=== PATIENT | female | born 1945 | race Caucasian/White ===

== ENCOUNTER 2017-06-20 15:53 | Emergency (ER) | payer MEDICARE ==
[2017-06-20] MEDS ORDERED: Adacel Vial IM ONE (16:23)
--- NOTE | 2017-06-20 16:35 | ERPHSYRPT ---
- History of Present Illness Time Seen by Provider: 06/20/17 16:15 Source: patient, family (daughter) Patient Subjective Stated Complaint: pt here for a fall today, pt tripped and fell going to dinning room for lunch today,pt co hurting all over, but worse to righ hip Triage Nursing Assessment: pt able to amulbate to bed from wc, resp easy, skin w /d pink, no brusiing to hip, has abrasion to upper lip, family unsure if front tooth is chipped from this fall Physician History: CC: fall Hx: 72 y/o patient of Dr Jg Patterson lives at [facility]. She was walking to the dining iqbal and fell. She is unsure of the events and has some hx of aphasia. She bumped her right supraorbital brow, her upper lip and possibly has a cracked left upper incisor, right hip and knee pain. No LOC. 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 No chest pain or shortness of breath. Unsure last tetanus vaccine. Occurred: just prior to arrival Reason for Fall: fell from standing pos Loss of Consciousness: no loss of consciousness Allergies/Adverse Reactions: Sulfa (Sulfonamide Antibiotics) Allergy (Verified 06/20/17 16:11) hydrochlorothiazide Adverse Reaction (Verified 06/20/17 16:11) Hx Tetanus, Diphtheria Vaccination/Date Given: No Hx Influenza Vaccination/Date Given: No Hx Pneumococcal Vaccination/Date Given: Yes Immunizations Up to Date: Yes - Review of Systems Constitutional: No Symptoms Eyes: No Vision Changes Respiratory: No Cough, No Dyspnea Cardiac: No Chest Pain Abdominal/Gastrointestinal: No Abdominal Pain, No Nausea, No Vomiting Musculoskeletal: Fall, No Back Pain, No Neck Pain Neurological: No Focal Weakness, No Headache All Other Systems: Reviewed and Negative - Past Medical History Neurological History: Stroke Musculoskeletal History: Fibromyalgia Other Medical History: restless leg - Past Surgical History Past Surgical History: Yes Gastrointestinal: Colon Resection Musculoskeletal: Orthopedic Surgery Female Surgical History: Hysterectomy Other Surgical History: knee replacements - Social History Smoking Status: Never smoker Exposure to second hand smoke: Yes Drug Use: none Patient Lives Alone: No ([facility]) - Female History Hx Last Menstrual Period: post - Nursing Vital Signs Nursing Vital Signs: Initial Vital Signs Temperature 97.2 F 06/20/17 16:05 Pulse Rate 83 10/12/17 16:05 Respiratory Rate 14 06/20/17 16:05 Blood Pressure 142/61 06/20/17 16:05 O2 Sat by Pulse Oximetry 96 06/20/17 16:05 Pain Scale Pain Intensity 4 - Annette Coma Score Best Eye Response ([place]): (4) open spontaneously Best Verbal Response (Annette): (4) confused conversation Best Motor Response (Annette): (6) obeys commands Annette Total: 14 - Physical Exam General Appearance: alert Head Injury: swelling (right supraorbital) Eye Exam: PERRL/EOMI ENT Exam: other (teeth occlude normally, lfet upper incisor has possible crack, upper lip has hole in dov surface) Neck Exam: No mid-line tenderness Respiratory/Chest Exam: normal breath sounds, No chest tenderness Cardiovascular Exam: regular rate/rhythm Gastrointestinal Exam: soft, No tenderness, No distention Extremity Exam: tenderness (right hip. right knee. Bruising and some swelling right knee.) Neurologic Exam: alert, cooperative, No motor deficits Skin Exam: warm, dry SpO2 Interpretation: normal SpO2: 96 Oxygen Delivery: Room Air Procedures - Laceration/Wound Repair upper lip Wound Length (cm): 0.75 Wound Explored: no foreign body noted Irrigated: Yes Hibiclens Prep: Yes Anesthesia: local, 2% Lidocaine (with epi) Volume Anesthetic (ccs): 1 Wound Repaired With: sutures Suture Size/Type: 5-0, chromic gut Number of Sutures: 2 Layer Closure?: No - Course Nursing assessment & vital signs reviewed: Yes - Radiology Exams right humerus, femur, knee, pelvis, cxr X-ray Interpretation: Reviewed by me, Negative - CT Exams brasin, cervical CT Interpretation: Negative, Tele-radiologist Report, No Fracture, No/ Intracranial Hemorrhag Ordered Tests: Active Orders 24 hr Category Date Time Status Catheter-[place] Rogel STAT Care 06/20/17 16:23 Active Cold Application STAT Care 06/20/17 16:26 Active IV Insertion STAT Care 06/20/17 16:23 Active NPO (ED) STAT Care 06/20/17 16:23 Active Prepare for Sutures STAT Care 06/20/17 17:45 Active Sutures STAT Care 06/20/17 17:45 Active Wound Care STAT Care 06/20/17 16:23 Active CERVICAL SPINE WO CONTRAST [CT] Stat Exams 06/20/17 16:24 Taken CHEST 1 VIEW (PORTABLE) Stat Exams 06/20/17 16:24 Taken FEMUR Stat Exams 06/20/17 16:28 Taken HEAD WITHOUT CONTRAST [CT] Stat Exams 06/20/17 16:24 Taken HUMERUS Stat Exams 06/20/17 16:38 Taken KNEE (1 OR 2 VIEW) Stat Exams 06/20/17 16:26 Taken PELVIS (1 OR 2 VIEWS) Stat Exams 06/20/17 17:24 Taken CBC W DIFF Stat Lab 06/20/17 16:45 Completed CMP Stat Lab 06/20/17 16:45 Completed PROTIME WITH INR Stat Lab 06/20/17 16:45 Completed PTT Stat Lab 06/20/17 16:45 Completed UA W/RFX UR CULTURE Stat Lab 06/20/17 16:24 Stop Req Medication Summary Discontinued Medications Generic Name Dose Route Start Last Admin Trade Name Freq PRN Reason Stop Dose Admin Diphtheria/Tetanus/Acell Pertussis 0.5 ml 06/20/17 16:23 06/20/17 16:36 Adacel Vial IM 06/20/17 16:24 0.5 ml .ONCE ONE Administration Lidocaine/Epinephrine 5 ml 06/20/17 17:45 Xylocaine 2%-Epi 1:100,000 Mdv IJ 06/20/17 17:46 STAT ONE Lidocaine/Epinephrine Confirm 06/20/17 17:43 Xylocaine 2%-Epi 1:100,000 Mdv Administered 06/20/17 17:44 Dose 1 ml IJ .STK-MED ONE Lab/Rad Data: Laboratory Result Diagrams 06/20/17 16:45 06/20/17 16:45 Laboratory Results 06/20/17 06/20/17 06/20/17 Range/Units 16:45 16:45 16:45 WBC 7.1 (4.0-10.5) K/mm3 RBC 4.93 (4.1-5.4) M/mm3 Hgb 14.5 (12.0-16.0) gm/dl Hct 44.1 (35-47) % MCV 89.5 (78-100) fl MCH 29.4 (26-32) pg MCHC 32.9 (32-36) g/dl RDW 13.7 (11.5-14.0) % Plt Count 191 (150-450) K/mm3 MPV 10.9 H (6-9.5) fl Gran % 63.8 (36.0-66.0) % Lymphocytes % 21.2 L (24.0-44.0) % Monocytes % 12.0 (0.0-12.0) % Eosinophils % 2.7 (0.00-5.0) % Basophils % 0.3 (0.0-0.4) % Basophils # 0.02 (0-0.4) INR 1.02 (0.8-3.0) APTT 30.8 (25.3-37.0) SECONDS Sodium 139 (136-145) mEq/L Potassium 3.7 (3.5-5.1) mEq/L Chloride 102 (98-107) mEq/L Carbon Dioxide 29.4 (21-32) mEq/L Anion Gap 11.4 (5-15) MEQ/L BUN 11 (9-20) mg/dL Creatinine 0.67 (0.55-1.30) mg/dl Estimated GFR > 60 ML/MIN Glucose 89 (70-110) MG/DL Calcium 9.1 (8.5-10.1) mg/dL Total Bilirubin 0.50 (0.2-1.0) mg/dL AST 13 L (15-37) U/L ALT 8 L (12-78) U/L Alkaline Phosphatase 71 (46-116) U/L Serum Total Protein 6.8 (6.4-8.2) gm/dL Albumin 3.9 (3.4-5.0) g/dL - Progress Progress Note: 06/20/17 17:44 No sign of fx. 06/20/17 18:02 Lip lac repaired. Will Rx amoxil. Inst given. Daughter will return her to [facility]. Counseled pt/family regarding: lab results, diagnosis, need for follow-up, rad results - Departure Time of Disposition: 18:03 Departure Disposition: Home Clinical Impression: Fall, Laceration of lip, Contusion Condition: Stable Critical Care Time: No Referrals: EMILIANA PATTERSON [Primary Care Provider] - Instructions: Contusion, Prevent Falls Additional Instructions: HEAD INJURY 1. A responsible person should observe the patient at home for 24 hours. 2. If any of the following signs or symptoms are observed or occur, call your family physician or return to the emergency department: A. Behavior change B. Persistent vomiting C. Unequal pupils D. Increasing drowsiness E. Difficulty in arousing the patient F. Severe headache G. Lump on head increasing in size Tylenol if needed for discomfort. Serena wrap to right knee. Rx amoxil. Return for problems or concerns. Prescriptions: Amoxicillin [Amoxil] 1 cap PO TID #21 capsule
[2017-06-20 16:55] LABS: BASOPHIL % 0.3 % (0.0-0.4); Eosinophil % 2.7 % (0.00-5.0); Granulocytes % 63.8 % (36.0-66.0); Lymphocytes % 21.2 % (24.0-44.0); Mean Cell Volume 89.5 fl (78-100); Mean Corpuscular Hemoglobin 29.4 pg (26-32); Mean Platelet Volume 10.9 fl (6-9.5); Platelet Count 191 K/mm3 (150-450); Red Blood Count 4.93 M/mm3 (4.1-5.4); Red Cell Distribution Width 13.7 % (11.5-14.0); White Blood Count 7.1 K/mm3 (4.0-10.5)
[2017-06-20 17:15] LABS: ALBUMIN 3.9 g/dL (3.4-5.0); ALKALINE PHOSPHATASE 71 U/L (46-116); ANION GAP 11.4 MEQ/L (5-15); BLOOD UREA NITROGEN 11 mg/dL (9-20); CHLORIDE 102 mEq/L (98-107); Carbon Dioxide 29.4 mEq/L (21-32); Glucose 89 MG/DL (70-110); Potassium 3.7 mEq/L (3.5-5.1); SGOT/AST 13 U/L (15-37); SGPT/ALT 8 U/L (12-78); SODIUM 139 mEq/L (136-145); Total Protein 6.8 gm/dL (6.4-8.2)
[2017-06-20 17:21] LABS: INR 1.02 (0.8-3.0); PROTIME 11.3 SECONDS (9.95-12.35)
[2017-06-20 17:24] LABS: PTT 30.8 SECONDS (25.3-37.0)
[2017-06-20] MEDS ORDERED: Xylocaine 2%-Epi 1:100,000 MDV IJ ONE ×2 (17:43→17:45)
[2017-06-20] MEDS ORDERED: AMOXIL 500 MG PO ONE (18:01)
[2017-06-20] MEDS ORDERED: AMOXIL 500 MG ONE (18:19)
[2017-06-20 18:26] VITALS: BP 137/75; PULSE 90; O2SAT 95
--- NOTE | 2017-06-21 08:36 | XRAY ---
Indication: Status post fall. Multiple contiguous axial images obtained through the head without contrast. Comparison: None There is age-appropriate global atrophy, mild periventricular degenerative micro-ischemia, moderate sized left insular old infarct, and small left parietal old infarct. No acute intracranial hemorrhage, hydrocephalus, or mass effect. Basilar artery appears dolichoectatic. Bony calvarium intact. Visualized paranasal sinuses and mastoid air cells clear. Impression: Multifocal old left cerebral infarcts as detailed. Atrophy and degenerative micro-ischemia. No acute intracranial abnormalities. CT DI 69.66
--- NOTE | 2017-06-21 08:40 | XRAY ---
Indication: Status post fall. Multiple contiguous axial images obtained through the cervical spine. Sagittal and coronal reformatted images obtained. Comparison: None Axial images negative for acute fracture, suspicious bony lesions, or spinal canal stenosis. Mild/moderate C3-C7 degenerative endplate spurring. Also multilevel bilateral degenerative facet hypertrophy. Sagittal and coronal reformatted images demonstrate slight reversal of the cervical lordosis, positional versus paraspinal muscular spasm. C3-C7 degenerative disc space narrowing. No acute compression fracture, subluxation, or jumped facet. Normal-appearing craniocervical junction. Visualized noncontrasted soft tissues demonstrates mild carotid calcifications bilaterally. Lung apices clear. CT head reported separately. Impression: 1. Cervical lordotic reversal, positional versus paraspinal spasm. Negative acute fracture/subluxation. 2. Multilevel degenerative changes. CT DI 117.12
--- NOTE | 2017-06-21 08:40 | XRAY ---
Indication: Status post fall. Comparison: None 2 views of the right humerus demonstrates mild osteopenia, moderate acromioclavicular degenerative arthropathy, and tiny well-circumscribed ossification lateral to the acromion process either degenerative versus old injury. No other bony, articular, or soft tissue abnormalities.
--- NOTE | 2017-06-21 08:43 | XRAY ---
Indication: Status post fall. Comparison: None 2 views of the right knee demonstrate osteopenia, posterior fabella, and previous total knee arthroplasty with intact articulation/prosthesis. No other bony, articular, or soft tissue abnormalities.
--- NOTE | 2017-06-21 08:43 | XRAY ---
Indication: Status post fall. Comparison: None 2 views of the right femur demonstrates osteopenia and total knee arthroplasty. No other bony, articular, or soft tissue abnormalities.
--- NOTE | 2017-06-21 08:43 | XRAY ---
Indication: Status post fall. Comparison: None Portable chest demonstrates right hemidiaphragm elevation with adjacent discoid atelectasis. Remaining heart and lungs unremarkable. Bony thorax intact with mild osteopenia and degenerative changes. Impression: Right hemidiaphragm elevation with adjacent atelectasis. No acute findings.
--- NOTE | 2017-06-21 08:44 | XRAY ---
Indication: Status post fall. Comparison: None Single AP pelvis demonstrates osteopenia, lower lumbar degenerative changes, pelvic phleboliths, and surgical clips overlying the lower lumbar spine. No other bony, articular, or soft tissue abnormalities.
== END 2017-06-20 18:15 | disposition home or self-care (01) ==
LOC: ED 15:53
PROC: 0CQ0XZZ Repair Upper Lip, External Approach (ICD-10-PCS; principal; 2017-06-20)
DX: S01.511A Laceration without foreign body of lip, initial encounter (principal); S00.83XA Contusion of other part of head, initial encounter; W01.0XXA Fall on same level from slipping, tripping and stumbling without subsequent striking against object, initial encounter; Y93.01 Activity, walking, marching and hiking; Y92.128 Other place in nursing home as the place of occurrence of the external cause
CPT/HCPCS: 12011; 36415; 70450; 71010; 72125; 72170; 73060; 73552; 73560; 80053; 85025; 85610; 85730; 90471; 90715; 99284; A9270-GY

== ENCOUNTER 2017-10-03 15:14 | Observation (INO) | payer MEDICARE ==
--- NOTE | 2017-10-03 15:40 | ERPHSYRPT ---
- History of Present Illness Time Seen by Provider: 10/03/17 15:28 Source: patient Exam Limitations: no limitations Patient Subjective Stated Complaint: pt here for a syncopal episode at [facility]. happened when hugging daughter jaxson spear so she was lefted to ground. happened about 1440 Triage Nursing Assessment: pt alert but sleepy, resp easy, skin w/d/p, pt aphasic from old stroke, and right side normally weaker, pt does answer manisha and no questions Physician History: 72-year-old white female with history of a aphasia and right-sided weakness secondary to his stroke in the past. Arrives via [employer] patient apparently was at the [facility] being visited by her daughter. Her daughter states she went to hug her jaxsonbye the patient the went stiff began leaning backwards and the daughter lowered her to the floor she was unresponsive for several seconds. Patient is alert at this time she is unable to follow instructions as to sticking out her tongue patient is able to method consultant with both hands but cannot follow instructions to touch her nose she can move her feet she cannot follow instructions to move her 4 head. Past medical history includes stroke, fibromyalgia, restless leg. Past surgical history includes colon resection replacement, hysterectomy, cholecystectomy, appendectomy Timing/Duration: today (1440 today) Severity: moderate Modifying Factors: Improves With: nothing Associated Symptoms: syncope, other (patient with a aphasia and right-sided weakness from prior stroke), No nausea, No vomiting, No abdominal pain, No shortness of breath, No heartburn, No diaphoresis, No cough, No chills, No chest pain, No fever, No headaches, No loss of appetite, No malaise, No rash, No seizure, No weakness Allergies/Adverse Reactions: gabapentin Allergy (Verified 10/03/17 15:25) Sulfa (Sulfonamide Antibiotics) Allergy (Verified 10/03/17 15:24) hydrochlorothiazide Adverse Reaction (Verified 10/03/17 15:24) Hx Tetanus, Diphtheria Vaccination/Date Given: No Hx Influenza Vaccination/Date Given: Yes Hx Pneumococcal Vaccination/Date Given: Yes Immunizations Up to Date: Yes - Review of Systems Constitutional: No Fever, No Chills Eyes: No Symptoms Ears, Nose, & Throat: No Symptoms Respiratory: No Cough, No Dyspnea Cardiac: No Chest Pain, No Edema, No Syncope Abdominal/Gastrointestinal: No Abdominal Pain, No Nausea, No Vomiting, No Diarrhea Genitourinary Symptoms: No Dysuria Musculoskeletal: No Back Pain, No Neck Pain Skin: No Rash Neurological: Other (syncope, aphasia right hemiparesis since stroke) Psychological: No Symptoms Endocrine: No Symptoms All Other Systems: Reviewed and Negative - Past Medical History Neurological History: Stroke Musculoskeletal History: Fibromyalgia Other Medical History: restless leg - Past Surgical History Past Surgical History: Yes Gastrointestinal: Colon Resection Musculoskeletal: Orthopedic Surgery Female Surgical History: Hysterectomy Other Surgical History: knee replacements - Social History Smoking Status: Never smoker Exposure to second hand smoke: No Drug Use: none Patient Lives Alone: No - Female History Hx Last Menstrual Period: post Hx Now: No - Nursing Vital Signs Nursing Vital Signs: Initial Vital Signs Temperature 98.1 F 10/03/17 15:19 Pulse Rate 107 H 10/03/17 15:19 Respiratory Rate 16 10/03/17 15:19 Blood Pressure 137/90 10/03/17 15:19 O2 Sat by Pulse Oximetry 94 L 10/03/17 15:19 Pain Scale Pain Intensity 7 - Physical Exam General Appearance: other (well-developed white female partial aphasia says one- word sentences cannot follow instructions to wrinkle her foreheead cooperative to examination) Eye Exam: PERRL/EOMI, eyes nml inspection Ears, Nose, Throat Exam: normal ENT inspection, TMs normal, pharynx normal, moist mucous membranes Neck Exam: normal inspection, non-tender, supple, full range of motion Respiratory Exam: normal breath sounds, lungs clear, No respiratory distress Cardiovascular Exam: regular rate/rhythm, normal heart sounds, normal peripheral pulses Gastrointestinal/Abdomen Exam: soft, normal bowel sounds, No tenderness, No mass Back Exam: normal inspection, normal range of motion, No CVA tenderness, No vertebral tenderness Extremity Exam: normal inspection, normal range of motion, pelvis stable Neurologic Exam: alert, cooperative, other (patient cannot follow instructions to wrinkle her forehead, stick out tongue, or do finger to nose, can say one word sentences, house admin are equal bilaterally able to move both feet) Skin Exam: normal color, warm, dry, No rash SpO2 Interpretation: normal (94%) SpO2: 94 - Course Nursing assessment & vital signs reviewed: Yes EKG Interpreted by Me: RATE (99 bpm), Sinus Rhythm, NORMAL AXIS, Other (EKG: Sinus rhythm, 99 bpm, normal axis, no acute ST or T wave changes noted) - Radiology Exams Chest X-ray Interpretation: Discussed w/ radiologist, Other (chest x-ray: Impression: Stable nonacute chest with chronic features) - CT Exams Head CT Interpretation: Discussed w/radiologist, Other (head CT: Impression: Stable multifocal old cerebral infarcts, global atrophy, and degenerative micro- ischemia. No new/acute, intracranial abnormalities) Abdomen/Pelvis CT Interpretation: Discussed w/radiologist (CT of the abdomen and pelvis: No comparisons, by basilar atelectasis, small hiatal hernia, large fecal debris in the ascending and transverse colon,, 3.4 cm right renal cyst, fatty epigastric ventral hernia, appendix not seen, moderate degenerative spondylosis and marked levoscoliosis, nondisplaced right 10th and 11th acute rib fracture and healing ninth rib fracture) Ordered Tests: Active Orders 24 hr Category Date Time Status Accucheck STAT Care 10/03/17 15:33 Active Cath for Specimen-Straight STAT Care 10/03/17 15:33 Active EKG-ER Only STAT Care 10/03/17 15:33 Active IV Insertion STAT Care 10/03/17 15:33 Active ABDOMEN AND PELVIS W/0 CONTRAS [CT] Stat Exams 10/03/17 17:28 Taken CHEST 1 VIEW (PORTABLE) Stat Exams 10/03/17 16:05 Completed HEAD WITHOUT CONTRAST [CT] Stat Exams 10/03/17 15:33 Completed CBC W DIFF Stat Lab 10/03/17 15:50 Completed CMP Stat Lab 10/03/17 15:50 Completed CULTURE,URINE Stat Lab 10/03/17 17:00 Received PROTIME WITH INR Stat Lab 10/03/17 15:50 Completed PTT Stat Lab 10/03/17 15:50 Completed TROPONIN Q3H Lab 10/03/17 15:50 Completed TROPONIN Q3H Lab 10/03/17 19:46 Received TROPONIN Q3H Lab 10/03/17 22:30 Ordered TROPONIN Q3H Lab 10/04/17 01:30 Ordered TROPONIN Q3H Lab 10/04/17 04:30 Ordered UA W/ MICROSCOPIC Stat Lab 10/03/17 17:00 Completed Medication Summary Generic Name Dose Route Start Last Admin Trade Name Freq PRN Reason Stop Dose Admin Sodium Chloride 1,000 mls @ 60 mls/hr 10/03/17 15:45 10/03/17 17:38 Sodium Chloride 0.9% 1000 Ml IV 11/02/17 15:44 60 mls/hr .[id number] JAIDA Administration Discontinued Medications Generic Name Dose Route Start Last Admin Trade Name Johana PRN Reason Stop Dose Admin Ceftriaxone Sodium/Dextrose 1 g in 50 mls @ 100 mls/hr 10/03/17 17:59 18:09 Rocephin 1 Gm-D5w 50 Ml Bag IV 10/03/17 18:28 100 mls/hr STAT STA Administration Ceftriaxone Sodium/Dextrose Confirm 10/03/17 18:08 Rocephin 1 Gm-D5w 50 Ml Bag Administered 10/03/17 18:09 Dose 1 g in 50 mls @ ud IV .STK-MED ONE Morphine Sulfate 2 mg 10/03/17 17:28 10/03/17 17:37 Morphine Sulfate 2 Mg Inj IV 10/03/17 17:29 2 mg STAT ONE Administration Morphine Sulfate Confirm 10/03/17 17:36 Morphine Sulfate 2 Mg Inj Administered 10/03/17 17:37 Dose 2 mg .ROUTE .STK-MED ONE Ondansetron HCl 4 mg 10/03/17 18:12 10/03/17 18:17 Zofran 4 Mg/2 Ml Vial IV 10/03/17 18:13 4 mg STAT ONE Administration Ondansetron HCl Confirm 10/03/17 18:13 Zofran 4 Mg/2 Ml Vial Administered 10/03/17 18:14 Dose 4 mg .ROUTE .STK-MED ONE Lab/Rad Data: Laboratory Result Diagrams 10/03/17 15:50 10/03/17 15:50 Laboratory Results 10/03/17 10/03/17 10/03/17 Range/Units 17:00 15:50 15:50 WBC (4.0-10.5) K/mm3 RBC (4.1-5.4) M/mm3 Hgb (12.0-16.0) gm/dl Hct (35-47) % MCV (78-100) fl MCH (26-32) pg MCHC (32-36) g/dl RDW (11.5-14.0) % Plt Count (150-450) K/mm3 MPV (6-9.5) fl Gran % (36.0-66.0) % Lymphocytes % (24.0-44.0) % Monocytes % (0.0-12.0) % Eosinophils % (0.00-5.0) % Basophils % (0.0-0.4) % Basophils # (0-0.4) INR 1.12 (0.8-3.0) APTT 27.6 (25.3-37.0) SECONDS Sodium (136-145) mEq/L Potassium (3.5-5.1) mEq/L Chloride (98-107) mEq/L Carbon Dioxide (21-32) mEq/L Anion Gap (5-15) MEQ/L BUN (9-20) mg/dL Creatinine (0.55-1.30) mg/dl Estimated GFR ML/MIN Glucose (70-110) MG/DL Calcium (8.5-10.1) mg/dL Total Bilirubin (0.2-1.0) mg/dL AST (15-37) U/L ALT (12-78) U/L Alkaline Phosphatase (46-116) U/L Troponin I 0.022 (0.000-0.056) ng/ml Serum Total Protein (6.4-8.2) gm/dL Albumin (3.4-5.0) g/dL Ur Collection Type CATH Urine Color DARK YELLOW (YELLOW) Urine Appearance CLOUDY (CLEAR) Urine pH 6.0 (5-6) Ur Specific Mitchell 1.025 (1.005-1.025) Urine Protein TRACE (Negative) Urine Ketones SMALL (NEGATIVE) Urine Blood 50 (0-5) Clifford/ul Urine Nitrite NEGATIVE (NEGATIVE) Urine Bilirubin SMALL (NEGATIVE) Urine Urobilinogen 1 (0-1) mg/dL Ur Leukocyte Esterase 1+ (NEGATIVE) Urine Microscopic RBC 5-10 (0-2) /HPF Urine Microscopic WBC 25-50 (0-5) /HPF Ur Epithelial Cells MODERATE (FEW) /HPF Urine Bacteria PACKED (NEGATIVE) /HPF Hyaline Casts 0-2 (0-2) /LPF Urine Mucus MODERATE (NEGATIVE) /HPF Urine Culture Reflexed YES (NO) Urine Glucose NEGATIVE (NEGATIVE) mg/dL Specimen Received 10/03/17 1730 10/03/17 10/03/17 Range/Units 15:50 15:50 WBC 8.0 (4.0-10.5) K/mm3 RBC 5.11 (4.1-5.4) M/mm3 Hgb 14.3 (12.0-16.0) gm/dl Hct 43.8 (35-47) % MCV 85.7 (78-100) fl MCH 28.0 (26-32) pg MCHC 32.6 (32-36) g/dl RDW 13.5 (11.5-14.0) % Plt Count 194 (150-450) K/mm3 MPV 10.8 H (6-9.5) fl Gran % 78.3 H (36.0-66.0) % Lymphocytes % 14.1 L (24.0-44.0) % Monocytes % 6.9 (0.0-12.0) % Eosinophils % 0.4 (0.00-5.0) % Basophils % 0.3 (0.0-0.4) % Basophils # 0.02 (0-0.4) INR (0.8-3.0) APTT (25.3-37.0) SECONDS Sodium 138 (136-145) mEq/L Potassium 3.7 (3.5-5.1) mEq/L Chloride 101 (98-107) mEq/L Carbon Dioxide 28.7 (21-32) mEq/L Anion Gap 12.2 (5-15) MEQ/L BUN 9 (9-20) mg/dL Creatinine 0.82 (0.55-1.30) mg/dl Estimated GFR > 60 ML/MIN Glucose 151 H (70-110) MG/DL Calcium 9.1 (8.5-10.1) mg/dL Total Bilirubin 1.10 H (0.2-1.0) mg/dL AST 16 (15-37) U/L ALT 6 L (12-78) U/L Alkaline Phosphatase 61 (46-116) U/L Troponin I (0.000-0.056) ng/ml Serum Total Protein 7.0 (6.4-8.2) gm/dL Albumin 3.5 (3.4-5.0) g/dL Ur Collection Type Urine Color (YELLOW) Urine Appearance (CLEAR) Urine pH (5-6) Ur Specific Mitchell (1.005-1.025) Urine Protein (Negative) Urine Ketones (NEGATIVE) Urine Blood (0-5) Clifford/ul Urine Nitrite (NEGATIVE) Urine Bilirubin (NEGATIVE) Urine Urobilinogen (0-1) mg/dL Ur Leukocyte Esterase (NEGATIVE) Urine Microscopic RBC (0-2) /HPF Urine Microscopic WBC (0-5) /HPF Ur Epithelial Cells (FEW) /HPF Urine Bacteria (NEGATIVE) /HPF Hyaline Casts (0-2) /LPF Urine Mucus (NEGATIVE) /HPF Urine Culture Reflexed (NO) Urine Glucose (NEGATIVE) mg/dL Specimen Received - Progress Progress: improved Progress Note: 10/03/17 15:41 72-year-old white female with history of a CVA in the past apparently had passed out while hugging her daughter is by at the [facility] patient's daughter states the patient hugged her B Vargas stiff and began to lean backwards and daughter states she lowered her to the floor she states she was unresponsive for a few seconds. Patient arrives she has a a fascia able to utter one-word sentences she cannot wrinkle her 4 head she cannot stick her tongue out and she cannot perform finger to nose rather bringing both hands up towards her face and touching that when she goes to do so she has bilateral house admin 5 over 5 able to move both feet she is alert and seems to answer questions appropriately. Head CT has been ordered IV normal saline appropriate labs EKG. According to the patient's daughter, the patient has been chronically aphasic since her stroke in January 2007 she does not appear to have focal changes she states she just seems kind of "foggy" she apparently told her daughter that she really didn't know what happened prior to coming here today. 10/03/17 19:04 Patient actually seems like she was getting better neurologically unfortunately however, she began to complain of lower abdominal pain she was given IV morphine. Urine shows a urinary tract infection because of the patient's syncopal episode any abdominal pain CT of the abdomen was ordered without contrast awaiting reading from this 10/03/17 19:21 A call has been put out to Dr. Pete Stokes who is this patient's family physician. Awaiting callback considering admission. 10/03/17 19:52 I've discussed the case with Dr. Emiliana Stokes will place patient on observation telemetry. Diagnosis 1 syncope to abdominal pain 3 urinary tract infection 4. History of aphasia and right sided weakness. . Evaluating him that he will. Neurologic. Patient has received normal saline she has received morphine, she will receive 162 mg of aspirin patient was also given Rocephin. - Departure Time of Disposition: 19:54 Departure Disposition: Observation Clinical Impression: history of cva with aphasia and r hemipa Syncope Qualifiers: Syncope type: unspecified Qualified Code(s): R55 - Syncope and collapse UTI (urinary tract infection) Qualifiers: Urinary tract infection type: acute cystitis Hematuria presence: without hematuria Qualified Code(s): N30.00 - Acute cystitis without hematuria Abdominal pain Qualifiers: Abdominal location: unspecified location Qualified Code(s): R10.9 - Unspecified abdominal pain Condition: Fair Critical Care Time: No Referrals: EMILIANA PATTERSON [Primary Care Provider] -
[2017-10-03] MEDS ORDERED: Sodium Chloride 0.9% 1000 ML 1,000 ML IV SCH (15:45)
[2017-10-03 16:02] LABS: BASOPHIL % 0.3 % (0.0-0.4); Basophil (Absolute #) 0.02 (0-0.4); Eosinophil % 0.4 % (0.00-5.0); Eosinophil (Absolute #) 0.03 (0-0.5); Granulocyte Absolute (ANC) 6.23 (1.4-6.9); Granulocytes % 78.3 % (36.0-66.0); Hematocrit 43.8 % (35-47); Hemoglobin 14.3 gm/dl (12.0-16.0); Lymphocyte (Absolute #) 1.12 (1.0-4.6); Lymphocytes % 14.1 % (24.0-44.0); Mean Cell Volume 85.7 fl (78-100); Mean Corpuscular Hgb Concent. 32.6 g/dl (32-36); Mean Platelet Volume 10.8 fl (6-9.5); Monocyte (Absolute #) 0.55 (0.0-1.3); Monocytes % 6.9 % (0.0-12.0); Platelet Count 194 K/mm3 (150-450); Red Blood Count 5.11 M/mm3 (4.1-5.4); Red Cell Distribution Width 13.5 % (11.5-14.0)
--- NOTE | 2017-10-03 16:17 | XRAY ---
Indication: Syncope. Headache. Multiple contiguous axial images obtained through the head without contrast. Comparison: June 20, 2017. Stable global atrophy, mild periventricular degenerative micro-ischemia, moderate sized left insular remote infarct, and small left parietal remote infarct. No acute intracranial hemorrhage, hydrocephalus, or mass effect. Stable dolichoectatic basilar artery. Bony calvarium intact. Visualized paranasal sinuses and mastoid air cells are clear. Impression: Stable multifocal old left cerebral infarcts, global atrophy, and degenerative micro-ischemia. No new/acute intracranial abnormalities. CTDI 69.66
[2017-10-03 16:18] LABS: INR 1.12 (0.8-3.0)
--- NOTE | 2017-10-03 16:19 | XRAY ---
Indication: Syncope. Comparison: June 20, 2017. Portable chest unchanged again demonstrating chronic right hemidiaphragm elevation with adjacent atelectasis. Remaining heart and lungs unremarkable. Bony thorax intact again with mild osteopenia and degenerative changes. No new/acute findings. Impression: Stable nonacute chest with chronic features.
[2017-10-03 16:20] LABS: PTT 27.6 SECONDS (25.3-37.0)
[2017-10-03 16:26] LABS: ALBUMIN 3.5 g/dL (3.4-5.0); ALKALINE PHOSPHATASE 61 U/L (46-116); ANION GAP 12.2 MEQ/L (5-15); BLOOD UREA NITROGEN 9 mg/dL (9-20); CHLORIDE 101 mEq/L (98-107); Calcium 9.1 mg/dL (8.5-10.1); Carbon Dioxide 28.7 mEq/L (21-32); Creatinine 1 0.82 mg/dl (0.55-1.30); EST GLOMERULAR FILTRATION RATE > 60 ML/MIN; Glucose 151 MG/DL (70-110); Potassium 3.7 mEq/L (3.5-5.1); SGOT/AST 16 U/L (15-37); SGPT/ALT 6 U/L (12-78); SODIUM 138 mEq/L (136-145)
[2017-10-03] MEDS ORDERED: MORPHINE SULFATE 2 MG INJ IV ONE (17:28)
[2017-10-03] MEDS ORDERED: Sodium Chloride 0.9% 1000 ML 1,000 ML ONE (17:36)
[2017-10-03] MEDS ORDERED: MORPHINE SULFATE 2 MG INJ ONE (17:36)
[2017-10-03 17:54] LABS: Appearance CLOUDY (CLEAR); Bilirubin SMALL (NEGATIVE); Blood 50 Ery/ul (0-5); Glucose NEGATIVE (NEGATIVE); Ketones SMALL (NEGATIVE); Leukocyte Esterase 1+ (NEGATIVE); Mucus MODERATE /HPF (NEGATIVE); Nitrite NEGATIVE (NEGATIVE); Protein,Urine Dip TRACE (Negative); Specific Gravity 1.025 (1.005-1.025); Urobilinogen 1 mg/dL (0-1); WBC 25-50 /HPF (0-5)
[2017-10-03 17:55] LABS: Bacteria PACKED /HPF (NEGATIVE); Epithelial Cells MODERATE /HPF (FEW); Hyaline Casts 0-2 /LPF (0-2)
[2017-10-03] MEDS ORDERED: ROCEPHIN 1 Gm-D5w 50 ml Bag** 1 G/50 ML IVPB IV STA (17:59)
[2017-10-03] MEDS ORDERED: ROCEPHIN 1 Gm-D5w 50 ml Bag** 1 G/50 ML IVPB IV ONE (18:08)
[2017-10-03] MEDS ORDERED: Zofran 4 MG/2 ML VIAL IV ONE (18:12)
[2017-10-03] MEDS ORDERED: Zofran 4 MG/2 ML VIAL ONE (18:13)
[2017-10-03] MEDS ORDERED: BABY ASPIRIN 81 MG CHEW PO ONE (20:29)
[2017-10-03] MEDS ORDERED: BABY ASPIRIN 81 MG CHEW ONE (20:44)
[2017-10-03] MEDS ORDERED: NovoLOG Insulin SQ PRN (22:18)
[2017-10-04] MEDS ORDERED: Sinemet CR 50/200 MG PO ONE (00:05)
[2017-10-04] MEDS ORDERED: Requip 0.5 MG PO ONE (00:05)
[2017-10-04] MEDS ORDERED: Colace 100 MG PO ONE (00:05)
[2017-10-04] MEDS: Sodium Chloride 0.9% 1000 ML 1,000 ML IV SCH ×3 (00:27→21:06)
[2017-10-04] MEDS: Robaxin 500 MG PO PRN (01:10)
[2017-10-04 04:58] LABS: BASOPHIL % 0.1 % (0.0-0.4); Basophil (Absolute #) 0.01 (0-0.4); Eosinophil % 0.6 % (0.00-5.0); Eosinophil (Absolute #) 0.06 (0-0.5); Granulocyte Absolute (ANC) 7.15 (1.4-6.9); Granulocytes % 75.8 % (36.0-66.0); Hematocrit 41.1 % (35-47); Hemoglobin 13.4 gm/dl (12.0-16.0); Lymphocyte (Absolute #) 1.34 (1.0-4.6); Lymphocytes % 14.2 % (24.0-44.0); Mean Cell Volume 86.3 fl (78-100); Mean Corpuscular Hemoglobin 28.2 pg (26-32); Mean Corpuscular Hgb Concent. 32.6 g/dl (32-36); Monocyte (Absolute #) 0.88 (0.0-1.3); Monocytes % 9.3 % (0.0-12.0); Platelet Count 175 K/mm3 (150-450); Red Blood Count 4.76 M/mm3 (4.1-5.4); Red Cell Distribution Width 13.5 % (11.5-14.0); White Blood Count 9.4 K/mm3 (4.0-10.5)
[2017-10-04 06:14] LABS: ALBUMIN 3.2 g/dL (3.4-5.0); ALKALINE PHOSPHATASE 54 U/L (46-116); ANION GAP 9.9 MEQ/L (5-15); BLOOD UREA NITROGEN 8 mg/dL (9-20); CHLORIDE 103 mEq/L (98-107); Calcium 8.7 mg/dL (8.5-10.1); Carbon Dioxide 30.2 mEq/L (21-32); Creatinine 1 0.61 mg/dl (0.55-1.30); EST GLOMERULAR FILTRATION RATE > 60 ML/MIN; Glucose 100 MG/DL (70-110); Potassium 3.8 mEq/L (3.5-5.1); SGOT/AST 17 U/L (15-37); SODIUM 139 mEq/L (136-145)
[2017-10-04 06:46] LABS: SGPT/ALT < 5 U/L (12-78)
--- NOTE | 2017-10-04 08:29 | PCM.HP ---
History of Present Illness - Chief Complaint Chief Complaint: syncope, UTI Date: 10/04/17 History of Present Illness: is a 72 year old female. She lives at [facility] living and has history of previous stroke with expressive aphasia. She has been feeling tired for 2 days she was having some headache and had a visit from some family members that caused stress in relation to a family trust. She was not feeling well so didn't go to lunch and her daughter was visiting her around 2pm and she stood to give her a hug and suddenly became stiff falling backwards. the daughter went to grab the facility nurse and they rolled her onto her side and she was not having seizure like activity but was somewhat stiff and then awoke with some confusion. She was brought to ED and was complaining of abdominal pain. This morning she is still complaining of abdominal pain in the epigastrium area as well a right lateral rib pain. - Review of Systems Constitutional: Fatigue, No Fever, No Chills Eyes: No Symptoms Ears, Nose, & Throat: No Symptoms Respiratory: No Cough, No Short Of Breath Cardiac: Chest Pain, No Edema, No Syncope Abdominal/Gastrointestinal: Abdominal Pain, Nausea, No Vomiting, No Diarrhea Genitourinary Symptoms: No Dysuria Musculoskeletal: No Back Pain, No Neck Pain Skin: No Rash Neurological: No Dizziness, No Focal Weakness, No Sensory Changes Psychological: No Symptoms Endocrine: No Symptoms Hematologic/Lymphatic: No Symptoms Immunological/Allergic: No Symptoms Medications & Allergies Home Medications: Home Medication List Aspirin EC 81 mg [Ecotrin 81 mg] 81 mg PO DAILY 10/03/17 [History Confirmed 10/03/17] Bupropion HCl [Wellbutrin Sr] 200 mg PO DAILY 10/03/17 [History Confirmed ] Calcium Carbonate/Vitamin D3 [Caltrate 600 Plus D3 Tablet] 600 mg PO DAILY 10/03 [History Confirmed 10/03/17] Carbidopa/Levodopa [Sinemet Cr 50-200 Tablet] 1 tablet PO BID 10/03/17 [History Confirmed 10/03/17] Carbidopa/Levodopa [Sinemet Cr 50-200 Tablet] 2 tablet PO QHS 10/03/17 [History Confirmed 10/03/17] Docusate Sodium [Colace] 100 mg PO BID 10/03/17 [History Confirmed 10/03/17] Lovastatin 10 mg PO DAILY 10/03/17 [History Confirmed 10/03/17] Magnesium Oxide 400 mg PO DAILY 10/03/17 [History Confirmed 10/03/17] Methocarbamol [Robaxin-750] 750 mg PO Q6H PRN PRN 10/03/17 [History Confirmed ] Omeprazole Magnesium [Prilosec Otc] 20 mg PO DAILY 10/03/17 [History Confirmed 10/03/17] Potassium Chloride 8 meq PO DAILY 10/03/17 [History Confirmed 10/03/17] Ropinirole HCl [Requip] 1 mg PO QHS 10/03/17 [History Confirmed 10/03/17] Allergies/Adverse Reactions: Allergies Allergy/AdvReac Type Severity Reaction Status Date / Time gabapentin Allergy Verified 10/03/17 15:25 Sulfa (Sulfonamide Allergy Verified 10/03/17 15:24 Antibiotics) hydrochlorothiazide AdvReac Verified 10/03/17 15:24 - Past Medical History Past Medical History: Yes Neurological History: Stroke ENT History: No Pertinent History Cardiac History: No Pertinent History Respiratory History: No Pertinent History Endocrine Medical History: No Pertinent History Musculoskelatal History: Fibromyalgia GI Medical History: No Pertinent History History: No Pertinent History Pyscho-Social History: No Pertinent History Reproductive Disorders: No Pertinent History Comment: restless leg - Female History Hx Last Menstrual Period: . Are you now?: No - Past Surgical History Past Surgical History: Yes Neuro Surgical History: No Pertinent History Cardiac History: No Pertinent History Respiratory Surgery: No Pertinent History GI Surgical History: Appendectomy, Cholecystectomy, Colon Resection Musculskeletal Surgical Hx: Orthopedic Surgery Female Surgical History: Hysterectomy Other Surgical History: bilateral knee replacements - Social History Smoking Status: Never smoker Exposure to second hand smoke: No Alcohol: None Drug Use: none - Physical Exam Vital Signs: Vital Signs - 24 hr Temp Pulse Resp BP Pulse Ox 10/04/17 04:00 98.3 F 84 16 146/84 97 10/04/17 00:20 98.2 F 93 H 24 162/83 97 10/04/17 00:00 98.1 F 91 H 18 150/78 94 L 10/03/17 20:47 96 H 20 96 10/03/17 20:24 94 L 10/03/17 19:58 93 H 18 132/85 97 10/03/17 19:07 91 H 18 115/77 93 L 10/03/17 19:04 92 H 22 115/77 10/03/17 16:15 93 H 20 139/91 97 10/03/17 15:19 98.1 F 107 H 16 137/90 94 L Oxygen-Last 24 hours O2 Percentage 2 Liters = 28% O2 Percentage 2 Liters = 28% O2 Percentage 2 Liters = 28% General Appearance: no apparent distress, alert Neurologic Exam: alert, oriented x 3, cooperative, nml station & gait, other ( chronic expressive aphasia unchanged) Eye Exam: PERRL/EOMI, eyes nml inspection Ears, Nose, Throat Exam: normal ENT inspection, TMs normal, pharynx normal, moist mucous membranes Neck Exam: normal inspection, non-tender, supple, full range of motion Respiratory Exam: normal breath sounds, lungs clear, other (pain right lateral ribs), No respiratory distress Cardiovascular Exam: regular rate/rhythm, normal heart sounds, normal peripheral pulses Gastrointestinal/Abdomen Exam: soft, normal bowel sounds, tenderness (epigastric ), No distention, No mass, No guarding Back Exam: normal inspection, normal range of motion, No CVA tenderness, No vertebral tenderness Extremity Exam: normal inspection, normal range of motion, pelvis stable Skin Exam: normal color, warm, dry, No rash Lymphatic Exam: No adenopathy Results - Labs Lab/Micro Results: Accuchecks Date 10/04/17 Time 07:39 Accucheck Value: 89 Lab Results-Last 24 Hours 10/03/17 10/04/17 10/04/17 Range/Units 23:04 01:39 04:54 WBC (4.0-10.5) K/mm3 RBC (4.1-5.4) M/mm3 Hgb (12.0-16.0) gm/dl Hct (35-47) % MCV (78-100) fl MCH (26-32) pg MCHC (32-36) g/dl RDW (11.5-14.0) % Plt Count (150-450) K/mm3 MPV (6-9.5) fl Gran % (36.0-66.0) % Lymphocytes % (24.0-44.0) % Monocytes % (0.0-12.0) % Eosinophils % (0.00-5.0) % Basophils % (0.0-0.4) % Basophils # (0-0.4) Sodium (136-145) mEq/L Potassium (3.5-5.1) mEq/L Chloride (98-107) mEq/L Carbon Dioxide (21-32) mEq/L Anion Gap (5-15) MEQ/L BUN (9-20) mg/dL Creatinine (0.55-1.30) mg/dl Estimated GFR ML/MIN Glucose (70-110) MG/DL Calcium (8.5-10.1) mg/dL Total Bilirubin (0.2-1.0) mg/dL AST (15-37) U/L ALT (12-78) U/L Alkaline Phosphatase (46-116) U/L Troponin I 0.019 0.019 < 0.017 (0.000-0.056) ng/ml Serum Total Protein (6.4-8.2) gm/dL Albumin (3.4-5.0) g/dL 10/04/17 10/04/17 Range/Units 04:54 04:54 WBC 9.4 (4.0-10.5) K/mm3 RBC 4.76 (4.1-5.4) M/mm3 Hgb 13.4 (12.0-16.0) gm/dl Hct 41.1 (35-47) % MCV 86.3 (78-100) fl MCH 28.2 (26-32) pg MCHC 32.6 (32-36) g/dl RDW 13.5 (11.5-14.0) % Plt Count 175 (150-450) K/mm3 MPV 11.0 H (6-9.5) fl Gran % 75.8 H (36.0-66.0) % Lymphocytes % 14.2 L (24.0-44.0) % Monocytes % 9.3 (0.0-12.0) % Eosinophils % 0.6 (0.00-5.0) % Basophils % 0.1 (0.0-0.4) % Basophils # 0.01 (0-0.4) Sodium 139 (136-145) mEq/L Potassium 3.8 (3.5-5.1) mEq/L Chloride 103 (98-107) mEq/L Carbon Dioxide 30.2 (21-32) mEq/L Anion Gap 9.9 (5-15) MEQ/L BUN 8 L (9-20) mg/dL Creatinine 0.61 (0.55-1.30) mg/dl Estimated GFR > 60 ML/MIN Glucose 100 (70-110) MG/DL Calcium 8.7 (8.5-10.1) mg/dL Total Bilirubin 1.60 H (0.2-1.0) mg/dL AST 17 (15-37) U/L ALT < 5 L (12-78) U/L Alkaline Phosphatase 54 (46-116) U/L Troponin I (0.000-0.056) ng/ml Serum Total Protein 6.0 L (6.4-8.2) gm/dL Albumin 3.2 L (3.4-5.0) g/dL Accuchecks Date 10/04/17 Time 07:39 Accucheck Value: 89 - Radiology Impressions Radiology Exams & Impressions: Radiology Procedures Category Date Time Status ECHO W/2D AND DOPPLER [US] Routine Exams 10/04/17 Ordered Assessment/Plan (1) UTI (urinary tract infection) Current Visit: Yes Status: Acute Qualifiers: Urinary tract infection type: acute cystitis Hematuria presence: without hematuria Qualified Code(s): N30.00 - Acute cystitis without hematuria Assessment & Plan: continue rocephin pending urine culture will work on improving constipation add senna with her abdominal pain as well as protonix for her epigastric pain her right rib fractures encourage tylenol now she does not want anything stronger at this time. with her syncope checking echo continue telemetry no evidence of any new focal deficits to suggest new stroke lovenox for ppx Code(s): N39.0 - URINARY TRACT INFECTION, SITE NOT SPECIFIED (2) Syncope Current Visit: Yes Status: Acute Qualifiers: Syncope type: unspecified Qualified Code(s): R55 - Syncope and collapse Code(s): R55 - SYNCOPE AND COLLAPSE (3) Closed rib fracture Current Visit: Yes Status: Acute Code(s): S22.39XA - FRACTURE OF ONE RIB, UNSP SIDE, INIT FOR CLOS FX (4) Abdominal pain Current Visit: Yes Status: Acute Qualifiers: Abdominal location: unspecified location Qualified Code(s): R10.9 - Unspecified abdominal pain Code(s): R10.9 - UNSPECIFIED ABDOMINAL PAIN (5) Restless leg syndrome Current Visit: Yes Status: Chronic Assessment & Plan: severe chornically on requip and sinemet
--- NOTE | 2017-10-04 08:41 | XRAY ---
Indication: Abdominal pain. Multiple contiguous axial images obtained through the abdomen and pelvis without contrast as ordered. Comparison: None Lung bases demonstrates bibasilar atelectasis/scarring. No large effusion. Heart is not enlarged. Small hiatal hernia. Noncontrasted stomach and bowel loops appear nonobstructed. Moderate fecal debris seen in the ascending and transverse colon. Appendix not seen. Previous cholecystectomy and hysterectomy. There are multiple anterior abdominal surgical clips. No free fluid/air. 3.4 cm right upper renal cyst and calcified splenic granulomas. Remaining liver, pancreas, spleen, adrenal glands, kidneys, ureters, and bladder appear unremarkable for noncontrast exam. Mild aortoiliac calcifications without AAA. Osseous structures intact with moderate degenerative spondylosis throughout the lumbar spine and marked levorotoscoliosis centered at L3. Also nondisplaced right 10/11 rib fractures and healing right 9 rib fracture. Epigastric moderate sized fatty midline ventral hernia. Impression: 1. Fecal stasis without obstruction. 2. Right renal cyst. 3. Small hiatal hernia and fatty ventral hernia. 4. Incidental right rib fractures. CT DI 23.55
[2017-10-04] MEDS ORDERED: MEDICATION INTERVENTION MC PRN (08:56)
[2017-10-04] MEDS: ROCEPHIN 1 Gm-D5w 50 ml Bag** 1 G/50 ML IVPB IV SCH (09:54)
[2017-10-04] MEDS: MAG-OX 400 PO SCH (09:54)
[2017-10-04] MEDS: Protonix 40MG Tablet PO SCH (09:54)
[2017-10-04] MEDS: ECOTRIN 81 MG PO SCH (09:55)
[2017-10-04] MEDS: ENOXAPARIN SODIUM SQ SCH (09:55)
[2017-10-04] MEDS: Klor Con 10 MEQ PO SCH (09:55)
[2017-10-04] MEDS: Wellbutrin SR 150 MG PO SCH (09:55)
[2017-10-04] MEDS: Colace 100 MG PO SCH ×2 (09:55→21:07)
[2017-10-04] MEDS ORDERED: ECOTRIN 81 MG PO SCH (10:00)
[2017-10-04] MEDS ORDERED: BUPROPION HCL 200 MG PO SCH (10:00)
[2017-10-04] MEDS: Sinemet CR 50/200 MG PO SCH ×3 (10:00→21:11)
[2017-10-04] MEDS ORDERED: NON-FORMULARY ITEM (Potassium Chloride [Potassium Chloride] 8 MEQ) PO SCH (10:00)
[2017-10-04] MEDS: SENOKOT 8.6 MG PO SCH ×2 (10:08→21:07)
[2017-10-04] MEDS: TYLENOL EXTRA STRENGTH 500 MG PO SCH ×2 (17:19→21:07)
[2017-10-04] MEDS: Requip 0.5 MG PO SCH (21:08)
[2017-10-04] MEDS: Zocor 10MG PO SCH (21:08)
[2017-10-05] MEDS: Robaxin 500 MG PO PRN ×2 (07:30→14:20)
[2017-10-05] MEDS: Sinemet CR 50/200 MG PO SCH ×4 (07:30→21:33)
--- NOTE | 2017-10-05 08:30 | PCM.NOTE ---
Date and Time: 10/05/17827 Subjective Assessment: patient is very confused this morning, not a good historian. apparently has some confusion at baseline but uncertain to what degree. she denies pain today Objective Exam General Appearance: no apparent distress Neurologic Exam: cooperative, No oriented x 3 Skin Exam: normal color, warm, dry Respiratory Exam: normal breath sounds, lungs clear, No respiratory distress Cardiovascular Exam: regular rate/rhythm, normal heart sounds Gastrointestinal/Abdomen Exam: soft, No tenderness, No mass Extremity Exam: normal inspection, normal range of motion OBJECTIVE DATA Vital Signs: Vital Signs - 24 hr Temp Pulse Resp BP Pulse Ox 10/05/17 07:40 98 F 85 18 137/81 94 L 10/05/17 06:53 97.6 F 82 18 132/76 91 L 10/05/17 04:00 96.4 F 81 18 146/87 92 L 10/05/17 00:00 96.4 F 81 18 146/87 92 L 10/04/17 20:00 96.4 F 81 18 146/87 92 L 10/04/17 16:00 96.3 F 86 16 144/77 89 L 10/04/17 11:35 98 F 78 17 121/76 94 L Oxygen-Last 24 hours O2 Percentage 2 Liters = 28% Pain Assessment - Last Documented Pain Intensity 0 Pain Scale Used 0-10 Pain Scale Intake and Output: Intake & Output 10/02/17 10/03/17 10/04/17 10/05/17 11:59 11:59 11:59 11:59 Intake Total 2055 Output Total 1400 Balance 655 Weight 81.7 kg Lab Results: Accuchecks Date 10/05/17 Date 10/04/17 Time 07:39 Time 23:00 Accucheck Value: 86 Accucheck Value: 87 Multi-Disciplinary Progress Notes: Multi-Disciplinary Progress Notes 10/04/17 22:39 Respiratory Note by Zhanna Maurice PT HAD OXYGEN ON 2LPM- SATS 96%. PT DOES NOT WEAR IT AT HOME. TOOK OFF OXYGEN- SATS 90% PT WAS SLEEPING. Initialized on 10/04/17 22:39 - END OF NOTE Assessment/Plan (1) Syncope Current Visit: Yes Status: Acute Qualifiers: Syncope type: unspecified Qualified Code(s): R55 - Syncope and collapse Assessment & Plan: troponins are negative, might need ECF care at this time as opposed to assisted living. Code(s): R55 - SYNCOPE AND COLLAPSE (2) UTI (urinary tract infection) Current Visit: Yes Status: Acute Qualifiers: Urinary tract infection type: acute cystitis Hematuria presence: without hematuria Qualified Code(s): N30.00 - Acute cystitis without hematuria Assessment & Plan: culture grew klebsiella sens to rocephin, continue current therapy Code(s): N39.0 - URINARY TRACT INFECTION, SITE NOT SPECIFIED (3) Closed rib fracture Current Visit: Yes Status: Acute Code(s): S22.39XA - FRACTURE OF ONE RIB, UNSP SIDE, INIT FOR CLOS FX
[2017-10-05] MEDS: ROCEPHIN 1 Gm-D5w 50 ml Bag** 1 G/50 ML IVPB IV SCH (09:50)
[2017-10-05] MEDS: TYLENOL EXTRA STRENGTH 500 MG PO SCH ×3 (09:51→21:34)
[2017-10-05] MEDS: Colace 100 MG PO SCH ×2 (09:51→21:33)
[2017-10-05] MEDS: Wellbutrin SR 150 MG PO SCH (09:51)
[2017-10-05] MEDS: Protonix 40MG Tablet PO SCH (09:52)
[2017-10-05] MEDS: MAG-OX 400 PO SCH (09:52)
[2017-10-05] MEDS: Klor Con 10 MEQ PO SCH (09:52)
[2017-10-05] MEDS: ECOTRIN 81 MG PO SCH (09:52)
[2017-10-05] MEDS: SENOKOT 8.6 MG PO SCH ×2 (09:52→21:34)
[2017-10-05] MEDS: ENOXAPARIN SODIUM SQ SCH (10:47)
[2017-10-05] MEDS: Requip 0.5 MG PO SCH (21:33)
[2017-10-05] MEDS: Zocor 10MG PO SCH (21:33)
[2017-10-06] MEDS: Sodium Chloride 0.9% 1000 ML 1,000 ML IV SCH (02:27)
[2017-10-06 05:49] LABS: BASOPHIL % 0.1 % (0.0-0.4); Basophil (Absolute #) 0.01 (0-0.4); Eosinophil % 2.2 % (0.00-5.0); Eosinophil (Absolute #) 0.18 (0-0.5); Granulocyte Absolute (ANC) 6.27 (1.4-6.9); Granulocytes % 77.5 % (36.0-66.0); Hematocrit 41.9 % (35-47); Hemoglobin 13.9 gm/dl (12.0-16.0); Lymphocyte (Absolute #) 0.99 (1.0-4.6); Lymphocytes % 12.2 % (24.0-44.0); Mean Corpuscular Hemoglobin 28.2 pg (26-32); Mean Corpuscular Hgb Concent. 33.2 g/dl (32-36); Mean Platelet Volume 11.2 fl (6-9.5); Monocyte (Absolute #) 0.65 (0.0-1.3); Platelet Count 195 K/mm3 (150-450); Red Blood Count 4.93 M/mm3 (4.1-5.4); Red Cell Distribution Width 13.5 % (11.5-14.0); White Blood Count 8.1 K/mm3 (4.0-10.5)
[2017-10-06 06:30] LABS: ALBUMIN 3.1 g/dL (3.4-5.0); ALKALINE PHOSPHATASE 62 U/L (46-116); ANION GAP 10.8 MEQ/L (5-15); BLOOD UREA NITROGEN 5 mg/dL (9-20); CHLORIDE 102 mEq/L (98-107); Calcium 9.1 mg/dL (8.5-10.1); Carbon Dioxide 27.7 mEq/L (21-32); Creatinine 1 0.55 mg/dl (0.55-1.30); EST GLOMERULAR FILTRATION RATE > 60 ML/MIN; Glucose 102 MG/DL (70-110); Potassium 3.3 mEq/L (3.5-5.1); SGOT/AST 15 U/L (15-37); SODIUM 137 mEq/L (136-145); Total Protein 6.4 gm/dL (6.4-8.2)
[2017-10-06 06:53] LABS: SGPT/ALT < 6 U/L (12-78)
[2017-10-06 07:23] VITALS: BP 140/84; PULSE 77; O2SAT 94
[2017-10-06] MEDS: Sinemet CR 50/200 MG PO SCH (08:32)
--- NOTE | 2017-10-06 09:01 | PCM.DS ---
Discharge Summary Date of Admission: 10/03/17 22:11 Admitting Physician: EMILIANA PATTERSON Primary Care Provider: EMILIANA PATTERSON Allergies Allergies gabapentin Allergy (Verified 10/03/17 15:25) Sulfa (Sulfonamide Antibiotics) Allergy (Verified 10/03/17 15:24) hydrochlorothiazide Adverse Reaction (Verified 10/03/17 15:24) Hospital Summary - Hospital Course Hospital Course: patient admitted after a fall, possible syncopal episode. had a stressful morning and hadn't eaten per her daughter. she has had AZ ruled out, no rhythm problems during admission. found to have uti, klebsielle in urine and has been on rocephin. she had a bowel movement today, tolerating po and functioning normally per her daughter. wants to return to assisted living, is interested in home health consult - Vitals & Intake/Output Vital Signs: Vital Signs Temperature 98.4 F 10/06/17 07:23 Pulse Rate 77 10/06/17 07:23 Respiratory Rate 17 10/06/17 07:23 Blood Pressure 140/84 10/06/17 07:23 O2 Sat by Pulse Oximetry 94 L 10/06/17 07:23 Oxygen-Last Documented O2 Percentage 2 Liters = 28% Intake & Output: Intake & Output 10/03/17 10/04/17 10/05/17 10/06/17 11:59 11:59 11:59 11:59 Intake Total 623 3135 2170 Output Total 1400 1100 Balance 623 1735 1070 Weight 81.7 kg 81.7 kg 82.6 kg - Lab Result Diagrams: 10/06/17 05:25 10/06/17 05:25 Lab Results-Last 24 Hrs: Accuchecks Date 10/05/17 Date 10/05/17 Date 10/05/17 Time 16:45 Time 11:27 Accucheck Value: 92 Accucheck Value: 109 Accucheck Value: 94 Accucheck Value: 91 Lab Results-Last 24 Hours 10/06/17 10/06/17 Range/Units 05:25 05:25 WBC 8.1 (4.0-10.5) K/mm3 RBC 4.93 (4.1-5.4) M/mm3 Hgb 13.9 (12.0-16.0) gm/dl Hct 41.9 (35-47) % MCV 85.0 (78-100) fl MCH 28.2 (26-32) pg MCHC 33.2 (32-36) g/dl RDW 13.5 (11.5-14.0) % Plt Count 195 (150-450) K/mm3 MPV 11.2 H (6-9.5) fl Gran % 77.5 H (36.0-66.0) % Lymphocytes % 12.2 L (24.0-44.0) % Monocytes % 8.0 (0.0-12.0) % Eosinophils % 2.2 (0.00-5.0) % Basophils % 0.1 (0.0-0.4) % Basophils # 0.01 (0-0.4) Sodium 137 (136-145) mEq/L Potassium 3.3 L (3.5-5.1) mEq/L Chloride 102 (98-107) mEq/L Carbon Dioxide 27.7 (21-32) mEq/L Anion Gap 10.8 (5-15) MEQ/L BUN 5 L (9-20) mg/dL Creatinine 0.55 (0.55-1.30) mg/dl Estimated GFR > 60 ML/MIN Glucose 102 (70-110) MG/DL Calcium 9.1 (8.5-10.1) mg/dL Total Bilirubin 0.90 (0.2-1.0) mg/dL AST 15 (15-37) U/L ALT < 6 L (12-78) U/L Alkaline Phosphatase 62 (46-116) U/L Serum Total Protein 6.4 (6.4-8.2) gm/dL Albumin 3.1 L (3.4-5.0) g/dL Micro Results-Entire Visit: Accuchecks Date 10/05/17 Date 10/05/17 Date 10/05/17 Time 16:45 Time 11:27 Accucheck Value: 92 Accucheck Value: 109 Accucheck Value: 94 Accucheck Value: 91 - Radiology Exams Ordered Rad Exams-Entire Visit: Radiology Procedures Category Date Time Status ECHO W/2D AND DOPPLER [US] Routine Exams 10/04/17 10:27 Taken Discharge Exam General Appearance: no apparent distress, alert Skin Exam: normal color, warm, dry Respiratory Exam: normal breath sounds, lungs clear, No respiratory distress Cardiovascular Exam: regular rate/rhythm, normal heart sounds Gastrointestinal/Abdomen Exam: soft, No tenderness, No mass Extremity Exam: normal inspection, normal range of motion Final Diagnosis/Problem List - Final Discharge Diagnosis/Problem (1) Syncope Current Visit: Yes Status: Acute Assessment & Plan: AZ ruled out, home today. no further episodes (2) UTI (urinary tract infection) Current Visit: Yes Status: Acute Assessment & Plan: send home on cipro x 5 days (3) Closed rib fracture Current Visit: Yes Status: Acute (4) Fall Current Visit: No Status: Acute Assessment & Plan: patient in assisted living, has weakness and unsteady gait. she is homebound, will refer to home health - Discharge Disposition: Home, Self-Care Condition: Fair Prescriptions: New Ciprofloxacin HCl [Cipro] 250 mg PO BID #10 tablet Continue Omeprazole Magnesium [Prilosec Otc] 20 mg PO DAILY Ropinirole HCl [Requip] 1 mg PO QHS Methocarbamol [Robaxin-750] 750 mg PO Q6H PRN PRN PRN Reason: Muscle Spasms Magnesium Oxide 400 mg PO DAILY Lovastatin 10 mg PO DAILY Docusate Sodium [Colace] 100 mg PO BID Carbidopa/Levodopa [Sinemet Cr 50-200 Tablet] 2 tablet PO QHS Carbidopa/Levodopa [Sinemet Cr 50-200 Tablet] 1 tablet PO BID Calcium Carbonate/Vitamin D3 [Caltrate 600 Plus D3 Tablet] 600 mg PO DAILY Bupropion HCl [Wellbutrin Sr] 200 mg PO DAILY Aspirin EC 81 mg [Ecotrin 81 mg] 81 mg PO DAILY Potassium Chloride 8 meq PO DAILY Follow up with: EMILIANA PATTERSON [Primary Care Provider] -
[2017-10-06] MEDS: Klor Con 10 MEQ PO SCH (09:04)
[2017-10-06] MEDS: TYLENOL EXTRA STRENGTH 500 MG PO SCH (09:04)
[2017-10-06] MEDS: SENOKOT 8.6 MG PO SCH (09:04)
[2017-10-06] MEDS: Protonix 40MG Tablet PO SCH (09:04)
[2017-10-06] MEDS: MAG-OX 400 PO SCH (09:04)
[2017-10-06] MEDS: ROCEPHIN 1 Gm-D5w 50 ml Bag** 1 G/50 ML IVPB IV SCH (09:04)
[2017-10-06] MEDS: Colace 100 MG PO SCH (09:04)
[2017-10-06] MEDS: ECOTRIN 81 MG PO SCH (09:04)
[2017-10-06] MEDS: ENOXAPARIN SODIUM SQ SCH (09:05)
[2017-10-06] MEDS: Wellbutrin SR 150 MG PO SCH (09:05)
[2017-10-06] MEDS ORDERED: K-LYTE 25 MEQ PO ONE (09:30)
== END 2017-10-06 11:15 | disposition home health service (06) ==
LOC: ED 15:14 → MED SURG 22:11 → UNDOADMOB 22:11 → MED SURG 10-04 20:30
PROVIDERS: ADMIT Family Medicine; ATTEND Family Medicine
DX: R55 Syncope and collapse (principal); N30.00 Acute cystitis without hematuria; S22.39XA Fracture of one rib, unspecified side, initial encounter for closed fracture; W18.09XA Striking against other object with subsequent fall, initial encounter; R10.9 Unspecified abdominal pain; G25.81 Restless legs syndrome; Z86.73 Personal history of transient ischemic attack (TIA), and cerebral infarction without residual deficits
CPT/HCPCS: 36415; 70450; 71045; 74176; 80053; 81000; 82962; 83036; 84484; 85025; 85610; 85730; 87077; 87086; 87186; 93005; 93268; 93306; 96360; 96361; 96365; 99285; G0378; J0696; J1650; J2270; J2405; P9612; A9270-GY

== ENCOUNTER 2017-10-21 17:48 | Emergency (ER) | payer MEDICARE ==
[2017-10-21] MEDS ORDERED: cereBYX 50 MG/ML IJ ONE (17:49)
--- NOTE | 2017-10-21 18:00 | ERPHSYRPT ---
- History of Present Illness Time Seen by Provider: 10/21/17 17:50 Source: family (daughter), EMS Exam Limitations: clinical condition Physician History: The patient is a 72-year-old female brought in by ambulance for a seizure that she had in the ambulance as she was being transported from [facility]. She was [facility] transferred from the [facility] to [facility] for having multiple seizures. She was in [facility] from October 16 until today, October 21. Her seizure medicines had been adjusted. She was being discharged back to the [facility]. She had apparently a grand mal seizure in the basic transport ambulance. She has a history of recent epilepsy that began 10/03/17. When she arrives, she is post ictal. Her past medical history is significant for epilepsy, Parkinson's dementia, and high cholesterol. Timing/Duration: today Severity: moderate Character of Deficits: other (seizure) Deficits: cannot stand Baseline/Normal Cognition: alert but confused Current Cognition: poor alertness Associated Symptoms: confusion, fatigue Allergies/Adverse Reactions: gabapentin Allergy (Verified 10/21/17 18:35) Sulfa (Sulfonamide Antibiotics) Allergy (Verified 10/21/17 18:35) hydrochlorothiazide Adverse Reaction (Verified 10/21/17 18:35) Home Medications: Aspirin EC 81 mg [Ecotrin 81 mg] 81 mg PO DAILY 10/03/17 [History] Bupropion HCl [Wellbutrin Sr] 200 mg PO DAILY 10/03/17 [History] Calcium Carbonate/Vitamin D3 [Caltrate 600 Plus D3 Tablet] 600 mg PO DAILY 10/03 [History] Carbidopa/Levodopa [Sinemet Cr 50-200 Tablet] 1 tablet PO BID 10/03/17 [History] Carbidopa/Levodopa [Sinemet Cr 50-200 Tablet] 2 tablet PO QHS 10/03/17 [History] Docusate Sodium [Colace] 100 mg PO BID 10/03/17 [History] Lovastatin 10 mg PO DAILY 10/03/17 [History] Magnesium Oxide 400 mg PO DAILY 10/03/17 [History] Methocarbamol [Robaxin-750] 750 mg PO Q6H PRN PRN 10/03/17 [History] Omeprazole Magnesium [Prilosec Otc] 20 mg PO DAILY 10/03/17 [History] Potassium Chloride 8 meq PO DAILY 10/03/17 [History] Ropinirole HCl [Requip] 1 mg PO QHS 10/03/17 [History] Hx Tetanus, Diphtheria Vaccination/Date Given: No Hx Influenza Vaccination/Date Given: Yes Hx Pneumococcal Vaccination/Date Given: Yes - Review of Systems Constitutional: No Fever, No Chills Eyes: No Symptoms Ears, Nose, & Throat: No Symptoms Respiratory: No Symptoms Cardiac: No Chest Pain, No Edema, No Syncope Abdominal/Gastrointestinal: No Abdominal Pain, No Nausea, No Vomiting, No Diarrhea Genitourinary Symptoms: No Dysuria Musculoskeletal: No Back Pain, No Neck Pain Skin: No Rash Neurological: Seizure Psychological: No Symptoms Endocrine: No Symptoms Hematologic/Lymphatic: No Symptoms Immunological/Allergic: No Symptoms All Other Systems: Reviewed and Negative - Past Medical History Pertinent Past Medical History: Yes Neurological History: Stroke ENT History: No Pertinent History Cardiac History: No Pertinent History Respiratory History: No Pertinent History Endocrine Medical History: No Pertinent History Musculoskeletal History: Fibromyalgia GI Medical History: No Pertinent History History: No Pertinent History Psycho-Social History: No Pertinent History Female Reproductive Disorders: No Pertinent History Other Medical History: restless leg - Past Surgical History Past Surgical History: Yes Neuro Surgical History: No Pertinent History Cardiac: No Pertinent History Respiratory: No Pertinent History Gastrointestinal: Appendectomy, Cholecystectomy, Colon Resection Musculoskeletal: Orthopedic Surgery Female Surgical History: Hysterectomy Other Surgical History: bilateral knee replacements - Social History Smoking Status: Never smoker Exposure to second hand smoke: No Drug Use: none Patient Lives Alone: No - Nursing Vital Signs Nursing Vital Signs: Initial Vital Signs Temperature 98.2 F 10/21/17 17:50 Pulse Rate 90 10/21/17 17:50 Respiratory Rate 15 10/21/17 17:50 Blood Pressure 155/97 10/21/17 17:50 O2 Sat by Pulse Oximetry 97 10/21/17 17:50 Pain Scale Pain Intensity 0 - Annette Coma Scale Best Eye Response (Annette): (4) open spontaneously Best Verbal Response ([place]): (4) confused conversation Best Motor Response (Annette): (6) obeys commands Annette Total: 14 - Physical Exam General Appearance: mild distress Ears, Nose, Throat Exam: normal ENT inspection, moist mucous membranes Neck Exam: normal inspection, non-tender, supple Respiratory: normal breath sounds, lungs clear, airway intact, No respiratory distress Cardiovascular: regular rate/rhythm, No edema Gastrointestinal: soft, No tenderness, No distention Pelvic Exam: not done Rectal Exam: not done Back Exam: normal inspection Extremity Exam: normal inspection, No pedal edema 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: tongue midline Coordination/Gait: normal finger to nose, normal gait Motor/Sensory: no motor deficit Skin Exam: normal color, warm, dry, No rash SpO2 Interpretation: normal Ordered Tests: Active Orders 24 hr Category Date Time Status IV Insertion STAT Care 10/21/17 18:00 Active Seizure Precautions -SCCHED STAT Care 10/21/17 18:00 Active BMP Stat Lab 10/21/17 18:05 Completed CBC W DIFF Stat Lab 10/21/17 18:05 Received Lactic Acid Stat Lab 10/21/17 18:50 Completed UA W/ MICROSCOPIC Stat Lab 10/21/17 18:05 Completed Medication Summary Discontinued Medications Generic Name Dose Route Start Last Admin Trade Name Freq PRN Reason Stop Dose Admin Phenytoin Sodium 1,000 mg/ 120 mls @ 240 mls/hr 10/21/17 18:00 Sodium Chloride IV 10/21/17 18:29 STAT ONE Sodium Chloride Confirm 10/21/17 18:27 Sodium Chloride 0.9% 100 Ml Ivpb Administered 10/21/17 18:28 Dose 100 mls @ ud IV .STK-MED ONE Phenytoin Sodium Confirm 10/21/17 18:20 Dilantin 100 Mg/2 Ml Administered 10/21/17 18:21 Dose 300 mg .ROUTE .STK-MED ONE Lab/Rad Data: Laboratory Result Diagrams 10/21/17 18:05 Laboratory Results 10/21/17 10/21/17 10/21/17 Range/Units 18:50 18:05 18:05 Sodium 138 (136-145) mEq/L Potassium 3.5 (3.5-5.1) mEq/L Chloride 102 (98-107) mEq/L Carbon Dioxide 24.1 (21-32) mEq/L Anion Gap 15.0 (5-15) MEQ/L BUN 5 L (9-20) mg/dL Creatinine 0.57 (0.55-1.30) mg/dl Estimated GFR > 60 ML/MIN Glucose 125 H (70-110) MG/DL Lactic Acid 1.4 (0.4-2.0) Calcium 9.2 (8.5-10.1) mg/dL Ur Collection Type CATH Urine Color YELLOW (YELLOW) Urine Appearance CLEAR (CLEAR) Urine pH 7.0 (5-6) Ur Specific [place] 1.010 (1.005-1.025) Urine Protein NEGATIVE (Negative) Urine Ketones NEGATIVE (NEGATIVE) Urine Blood NEGATIVE (0-5) Clifford/ul Urine Nitrite NEGATIVE (NEGATIVE) Urine Bilirubin NEGATIVE (NEGATIVE) Urine Urobilinogen NORMAL (0-1) mg/dL Ur Leukocyte Esterase TRACE (NEGATIVE) Urine Microscopic WBC 2-5 (0-5) /HPF Ur Epithelial Cells RARE (FEW) /HPF Urine Bacteria RARE (NEGATIVE) /HPF Urine Mucus SLIGHT (NEGATIVE) /HPF Urine Culture Reflexed NO (NO) Urine Glucose NEGATIVE (NEGATIVE) mg/dL Specimen Received 10-21-17 1825 - Progress Progress: improved Progress Note: 10/21/17 19:[address] Walton at [facility] who accepts pt after pt receives dilantin for breakthrough seizure. 10/21/17 19:09 Counseled pt/family regarding: lab results, diagnosis - Departure Time of Disposition: 19:09 Departure Disposition: Transfer (transfer to [facility] per Dr Walton.) Clinical Impression: Seizure Condition: Stable Critical Care Time: No Referrals: EMILIANA PATTERSON [Primary Care Provider] -
[2017-10-21] MEDS ORDERED: Dilantin 100 MG/2 ML ONE (18:20)
[2017-10-21 18:21] LABS: BASOPHIL % 0.3 % (0.0-0.4); Basophil (Absolute #) 0.02 (0-0.4); Eosinophil % 0.4 % (0.00-5.0); Eosinophil (Absolute #) 0.03 (0-0.5); Granulocyte Absolute (ANC) 5.34 (1.4-6.9); Granulocytes % 74.1 % (36.0-66.0); Hematocrit 42.8 % (35-47); Hemoglobin 13.8 gm/dl (12.0-16.0); Lymphocyte (Absolute #) 1.05 (1.0-4.6); Lymphocytes % 14.6 % (24.0-44.0); Mean Cell Volume 84.3 fl (78-100); Mean Corpuscular Hemoglobin 27.2 pg (26-32); Mean Corpuscular Hgb Concent. 32.2 g/dl (32-36); Mean Platelet Volume 11.5 fl (6-9.5); Monocyte (Absolute #) 0.76 (0.0-1.3); Monocytes % 10.6 % (0.0-12.0); Platelet Count 233 K/mm3 (150-450); Red Blood Count 5.08 M/mm3 (4.1-5.4); Red Cell Distribution Width 15.2 % (11.5-14.0); White Blood Count 7.2 K/mm3 (4.0-10.5)
[2017-10-21 18:25] LABS: Appearance CLEAR (CLEAR); Bilirubin NEGATIVE (NEGATIVE); Blood NEGATIVE Ery/ul (0-5); Glucose NEGATIVE (NEGATIVE); Ketones NEGATIVE (NEGATIVE); Leukocyte Esterase TRACE (NEGATIVE); Nitrite NEGATIVE (NEGATIVE); Protein,Urine Dip NEGATIVE (Negative); Urobilinogen NORMAL mg/dL (0-1)
[2017-10-21] MEDS ORDERED: Sodium Chloride 0.9% 100 ML IVPB 100 ML IV ONE ×2 (18:27→19:38)
[2017-10-21 18:42] LABS: Bacteria RARE /HPF (NEGATIVE); Epithelial Cells RARE /HPF (FEW); Mucus SLIGHT /HPF (NEGATIVE)
[2017-10-21 18:50] LABS: BLOOD UREA NITROGEN 5 mg/dL (9-20); CHLORIDE 102 mEq/L (98-107); Calcium 9.2 mg/dL (8.5-10.1); Carbon Dioxide 24.1 mEq/L (21-32); Creatinine 1 0.57 mg/dl (0.55-1.30); EST GLOMERULAR FILTRATION RATE > 60 ML/MIN; Glucose 125 MG/DL (70-110); Potassium 3.5 mEq/L (3.5-5.1); SODIUM 138 mEq/L (136-145)
[2017-10-21] MEDS: DILANTIN IV 250 MG/5 ML*** 1,000 MG in Sodium Chloride 0.9% 100 ML IVPB 100 ML IV ONE (19:21)
[2017-10-21 19:29] LABS: Slide Review 1 YES
[2017-10-21] MEDS ORDERED: cereBYX 50 MG/ML ONE (19:39)
[2017-10-21] MEDS: cereBYX 50 MG/ML*** 1,000 MG in Sodium Chloride 0.9% 100 ML IVPB 100 ML IV ONE (19:46)
[2017-10-21 20:49] VITALS: BP 146/115; PULSE 86; O2SAT 94
== END 2017-10-21 21:10 | disposition short-term general hospital (02) ==
LOC: ED 17:48
DX: G40.909 Epilepsy, unspecified, not intractable, without status epilepticus (principal); Z79.899 Other long term (current) drug therapy; M79.7 Fibromyalgia; Z86.73 Personal history of transient ischemic attack (TIA), and cerebral infarction without residual deficits
CPT/HCPCS: 36000; 36415; 80048; 81000; 83605; 85025; 96360; 96365; 99285; J1165; Q2009

== ENCOUNTER 2023-12-13 14:18 | Emergency (ER) | payer MEDICARE ==
[2023-12-13 14:36] VITALS: RESP 20; TEMP 97.2
[2023-12-13] MEDS ORDERED: Zofran 4 MG/2 ML VIAL ONE (14:38)
[2023-12-13] MEDS ORDERED: Sodium Chloride 0.9% 1000 ML 1,000 ML ONE (14:38)
[2023-12-13] MEDS: Sodium Chloride 0.9% 1000 ML 1,000 ML IV STA (14:46)
[2023-12-13] MEDS: Zofran 4 MG/2 ML VIAL IV ONE (14:46)
[2023-12-13 14:53] LABS: Absolute Neutrophil Ct (ANC) 4.54 x10^3/uL (1.4-6.9); BASOPHIL % 0.4 % (0.0-0.4); Basophil (Absolute #) 0.03 x10^3/uL (0-0.4); Eosinophil % 2.4 % (0.00-5.0); Eosinophil (Absolute #) 0.17 x10^3/uL (0-0.5); Hematocrit 45.7 % (35-47); Hemoglobin 15.3 g/dL (12.0-16.0); IMMATURE GRAN # 0.02 x10^3u/L (0.00-0.03); IMMATURE GRAN % 0.3 % (0.00-0.4); Lymphocyte (Absolute #) 1.53 x10^3/uL (1.0-4.6); Lymphocytes % 21.9 % (24.0-44.0); Mean Cell Volume 89.3 fL (78-100); Mean Corpuscular Hemoglobin 29.9 pg (26-32); Mean Corpuscular Hgb Concent. 33.5 g/dL (32-36); Mean Platelet Volume 10.6 fL (7.5-11.0); Monocyte (Absolute #) 0.71 x10^3/uL (0.0-1.3); Monocytes % 10.1 % (0.0-12.0); Neutrophil % 64.9 % (36.0-66.0); Platelet Count 184 x10^3/uL (150-450); Red Blood Count 5.12 x10^6/uL (4.1-5.4); Red Cell Distribution Width 13.1 % (11.5-14.0)
[2023-12-13 14:56] VITALS: PULSE 75
[2023-12-13 15:05] LABS: ANION GAP 14.6 MEQ/L (5-15); Calcium 9.4 mg/dL (8.4-10.2); Creatinine 1 0.66 mg/dL (0.52-1.04); EST GLOMERULAR FILTRATION RATE 90.3 ML/MIN; Potassium 4.5 mmol/L (3.5-5.1); Total Protein 7.2 g/dL (6.3-8.2)
[2023-12-13 15:46] LABS: Appearance Cloudy (Clear); Bacteria Many /HPF (None Seen); Bilirubin Negative (Negative); Blood Negative (Negative); Epithelial Cells None Seen /HPF (None Seen); Glucose, Urine Negative (Negative); Hyaline Casts NONE SEEN /LPF (0-2); Ketones Trace (Negative); Leukocyte Esterase Large (Negative); Nitrite Positive (Negative); Protein,Urine Dip Negative (Negative); WBC >100 /HPF (0-5)
[2023-12-13 15:50] LABS: ADD URINE CULTURE? YES (NO)
--- NOTE | 2023-12-13 15:50 | XRAY ---
Indication: Vomiting. Comparison: October 03, 2017 Portable chest again demonstrates chronic right hemidiaphragm elevation with adjacent atelectasis. Remaining heart and lungs unremarkable. Bony thorax intact again with osteopenia and mild degenerative changes. No new/acute findings.
[2023-12-13] MEDS ORDERED: ROCEPHIN 1 GM / 100 ML NaCl 1 GM/100 ML IVPB IV ONE (16:01)
[2023-12-13] MEDS: ROCEPHIN 1 GM / 100 ML NaCl 1 GM/100 ML IVPB IV ONE (16:03)
[2023-12-13 16:20] VITALS: BP 104/72; O2SAT 90
--- NOTE | 2023-12-13 16:28 | ERPHSYRPT ---
- History of Present Illness Time Seen by Provider: 12/13/23 14:25 Source: patient Exam Limitations: no limitations Patient Subjective Stated Complaint: Pt relative states "She lives in the assisted living of [facility] [place] and she had a stroke 17 years ago that left her with some aphasia. She has had diarrhea for the past week. It started with vomiting and she stopped that . I called her dr and they told me she might be dehydrated." Triage Nursing Assessment: PT presented alert and oriented X 3, skin pwd. Pt ambulates with an upright steady gait, able to speak in clear full sentences. Pt rests comfortably on the bed. Physician History: Patient brought in by adult daughter who is patient's power of litigation attorney associate. She states that patient is in assisted living at this point in time. This is secondary to a stroke several years ago. Patient has been having diarrhea for 1 week. Started as diarrhea and vomiting. Finally called their PCP today. Was told to come in here for IV hydration and evaluation. Patient has no falls no trauma. She has no fever here. Patient is taking PO well. Same number of urinations and increased diarrhea. The patient has no signs of altered mental status, nuchal rigidity, signs of meningitis. The patient is up-to-date on all vaccinations. Allergies/Adverse Reactions: gabapentin Allergy (Verified 10/21/17 18:35) Sulfa (Sulfonamide Antibiotics) Allergy (Verified 10/21/17 18:35) hydrochlorothiazide Adverse Reaction (Verified 10/21/17 18:35) Home Medications: Aspirin EC 81 mg [Ecotrin 81 mg] 81 mg PO DAILY 10/03/17 [History] Calcium Carbonate/Vitamin D3 [Caltrate 600 Plus D3 Tablet] 600 mg PO DAILY [History] Carbidopa/Levodopa [Sinemet Cr 50-200 Tablet] 1 tablet PO BID 10/03/17 [History] Carbidopa/Levodopa [Sinemet Cr 50-200 Tablet] 2 tablet PO QHS 10/03/17 [History] Docusate Sodium [Colace] 100 mg PO BID 10/03/17 [History] Lovastatin 10 mg PO DAILY 10/03/17 [History] Magnesium Oxide 400 mg PO DAILY 10/03/17 [History] Omeprazole Magnesium [Prilosec Otc] 20 mg PO DAILY 10/03/17 [History] Potassium Chloride 8 meq PO DAILY 10/03/17 [History] Ropinirole HCl [Requip] 1 mg PO QHS 10/03/17 [History] buPROPion HCL [Wellbutrin Sr] 200 mg PO DAILY 10/03/17 [History] methocarbamoL [Robaxin-750] 750 mg PO Q6H PRN PRN 10/03/17 [History] Hx Tetanus, Diphtheria Vaccination/Date Given: No Hx Influenza Vaccination/Date Given: Yes Hx Pneumococcal Vaccination/Date Given: Yes Immunizations Up to Date: Yes Travel Risk - International Travel Have you traveled outside of the country in past 3 weeks: No - Emerging Infectious Disease Are you exhibiting symptoms associated with any current EIDs: Yes Symptoms: Abdominal Pain, Diarrhea - Past Medical History Pertinent Past Medical History: Yes Neurological History: Stroke ENT History: No Pertinent History Cardiac History: No Pertinent History Respiratory History: No Pertinent History Endocrine Medical History: No Pertinent History Musculoskeletal History: Fibromyalgia GI Medical History: No Pertinent History History: No Pertinent History Psycho-Social History: No Pertinent History Female Reproductive Disorders: No Pertinent History Other Medical History: restless leg - Past Surgical History Past Surgical History: Yes Neuro Surgical History: No Pertinent History Cardiac: No Pertinent History Respiratory: No Pertinent History Gastrointestinal: Appendectomy, Cholecystectomy, Colon Resection Musculoskeletal: Orthopedic Surgery Female Surgical History: Hysterectomy Other Surgical History: bilateral knee replacements - Social History Smoking Status: Never smoker Exposure to second hand smoke: No Drug Use: none Patient Lives Alone: No - Nursing Vital Signs Nursing Vital Signs: Initial Vital Signs Temperature 97.2 F 12/13/23 14:27 Pulse Rate 87 12/13/23 14:27 Respiratory Rate 20 12/13/23 14:27 Blood Pressure 139/81 12/13/23 14:27 O2 Sat by Pulse Oximetry 92 L 12/13/23 14:27 Pain Scale Pain Intensity 0 - Physical Exam SpO2 Interpretation: normal SpO2: 90 Comments: 12/13/23 16:26 Review of Systems Constitutional: Negative for fever. HENT: Negative for congestion. Respiratory: Negative for shortness of breath. Cardiovascular: Negative for chest pain. Gastrointestinal: Negative for abdominal pain. Genitourinary: Negative for dysuria. Musculoskeletal: Negative for back pain. Skin: Negative for rash. Neurological: Negative for headaches. Psychiatric/Behavioral: Negative for behavioral problems. All other systems reviewed and are negative. Physical Exam Vitals signs and nursing note reviewed. Constitutional: Appearance: Patient is well-developed. HENT: Head: Normocephalic and atraumatic. Eyes: Conjunctiva/sclera: Conjunctivae normal. Neck: Musculoskeletal: Normal range of motion. Trachea: No tracheal deviation. Cardiovascular: Rate and Rhythm: Normal rate. Pulmonary: Effort: Pulmonary effort is normal. No respiratory distress. Abdominal: Palpations: Abdomen is soft. Diffuse tenderness without rebound or guarding Musculoskeletal: General: No deformity. Skin: General: Skin is warm and dry. Neurological/ Psychiatric: Mental Status: Mental status, behavior, interaction with environment is appropriate for patient's age and condition - Course Nursing assessment & vital signs reviewed: Yes EKG Interpreted by Me: Sinus Rhythm (Sinus rhythm, rate of 80, CA interval 178, QRS 145, QTc is 495, no STEMI, left bundle branch block) Ordered Tests: Active Orders 24 hr Category Date Time Status EKG-ER Only STAT Care 12/13/23 14:36 Active IV Insertion STAT Care 12/13/23 14:36 Active ABDOMEN AND PELVIS W/0 CONTRAS [CT] Stat Exams 12/13/23 15:59 Taken CHEST 1 VIEW (PORTABLE) Stat Exams 12/13/23 14:36 Completed CBC W DIFF Stat Lab 12/13/23 14:36 Completed CMP Stat Lab 12/13/23 14:36 Completed CULTURE,URINE Stat Lab 12/13/23 15:37 Received LIPASE Stat Lab 12/13/23 14:36 Completed UA W/RFX UR CULTURE Stat Lab 12/13/23 15:37 Completed Medication Summary Discontinued Medications Generic Name Dose Route Start Last Admin Trade Name Freq PRN Reason Stop Dose Admin Sodium Chloride 1,000 mls @ 999 mls/hr 12/13/23 14:36 12/13/23 15:48 Sodium Chloride 0.9% 1000 Ml IV 12/13/23 15:36 Infused .Q1H1M STA Infusion Sodium Chloride Confirm 12/13/23 14:38 Sodium Chloride 0.9% 1000 Ml Administered 12/13/23 14:39 Dose 1,000 mls @ ud .ROUTE .STK-MED ONE Ceftriaxone Sodium 1 gm in 100 mls @ 200 mls/hr 12/13/23 15:58 12/13/23 16:48 Rocephin 1 Gm / 100 Ml Nacl IV 12/13/23 16:27 Infused STAT ONE Infusion Ceftriaxone Sodium Confirm 12/13/23 16:01 Rocephin 1 Gm / 100 Ml Nacl Administered 12/13/23 16:02 Dose 1 gm in 100 mls @ ud IV .STK-MED ONE Ondansetron HCl 4 mg 12/13/23 14:36 12/13/23 14:46 Ondansetron Hcl 4 Mg/2 Ml Vial IV 12/13/23 14:37 4 mg STAT ONE Administration Ondansetron HCl Confirm 12/13/23 14:38 Ondansetron Hcl 4 Mg/2 Ml Vial Administered 12/13/23 14:39 Dose 4 mg .ROUTE .STK-MED ONE Lab/Rad Data: Laboratory Result Diagrams 12/13/23 14:36 12/13/23 14:36 Laboratory Results 12/13/23 12/13/23 12/13/23 Range/Units 15:37 14:36 14:36 WBC 7.0 (4.0-10.5) x10^3/uL RBC 5.12 (4.1-5.4) x10^6/uL Hgb 15.3 (12.0-16.0) g/dL Hct 45.7 (35-47) % MCV 89.3 (78-100) fL MCH 29.9 (26-32) pg MCHC 33.5 (32-36) g/dL RDW 13.1 (11.5-14.0) % Plt Count 184 (150-450) x10^3/uL MPV 10.6 (7.5-11.0) fL Gran % 64.9 (36.0-66.0) % Immature Gran % (Auto) 0.3 (0.00-0.4) % Nucleat RBC Rel Count 0.0 (0.00-0.1) % Eos # (Auto) 0.17 (0-0.5) x10^3/uL Immature Gran # (Auto) 0.02 (0.00-0.03) x10^3u/L Absolute Lymphs (auto) 1.53 (1.0-4.6) x10^3/uL Absolute Monos (auto) 0.71 (0.0-1.3) x10^3/uL Absolute Nucleated RBC 0.00 (0.00-0.01) x10^3u/L Lymphocytes % 21.9 L (24.0-44.0) % Monocytes % 10.1 (0.0-12.0) % Eosinophils % 2.4 (0.00-5.0) % Basophils % 0.4 (0.0-0.4) % Absolute Granulocytes 4.54 (1.4-6.9) x10^3/uL Basophils # 0.03 (0-0.4) x10^3/uL Sodium 133 L (135-145) mmol/L Potassium 4.5 (3.5-5.1) mmol/L Chloride 100 (98-107) mmol/L Carbon Dioxide 23 (22-30) mmol/L Anion Gap 14.6 (5-15) MEQ/L BUN 11 (7-17) mg/dL Creatinine 0.66 (0.52-1.04) mg/dL Estimated GFR 90.3 ML/MIN Glucose 103 (74-106) mg/dL Calcium 9.4 (8.4-10.2) mg/dL Total Bilirubin 2.00 H (0.2-1.3) mg/dL AST 61 H (14-36) U/L ALT 33 (0-35) U/L Alkaline Phosphatase 44 (38-126) U/L Serum Total Protein 7.2 (6.3-8.2) g/dL Albumin 4.0 (3.5-5.0) g/dL Lipase 41 (23-300) U/L Urine Color Yellow (Yellow) Urine Appearance Cloudy A (Clear) Urine pH 6.0 (4.6-8.0) Ur Specific [place] 1.010 (1.005-1.030) Urine Protein Negative (Negative) Urine Glucose (UA) Negative (Negative) mg/dL Urine Ketones Trace A (Negative) Urine Blood Negative (Negative) Urine Nitrite Positive A (Negative) Urine Bilirubin Negative (Negative) Urine Urobilinogen 1.0 A (0.2) mg/dL Ur Leukocyte Esterase Large A (Negative) U Hyaline Cast (Auto) NONE SEEN (0-2) /LPF Urine Microscopic RBC 3-5 (0-5) /HPF Urine Microscopic WBC >100 A (0-5) /HPF Ur Epithelial Cells None Seen (None Seen) /HPF Urine Bacteria Many A (None Seen) /HPF Urine Culture Reflexed YES (NO) - Progress Progress: improved Progress Note: 12/13/23 16:27 Differential diagnosis includes kidney stone, compression fracture, infection, UTI, triple AAA - basic labs including: CBC, lipase, CMP, UA - insert IV for symptom management - consider imaging: CT ab/pelvis or U/S Reevaluation Patient feels improved with medication. Labs demonstrate UTI. First dose of Rocephin given here in the emergency department. CT scan demonstrates no obvious abnormality. Patient does have some diarrhea. However no obvious acute abnormality. Will discharge patient home on Keflex. She does have a sulfa allergy. She will return here sooner for any new or changing symptoms. 12/13/23 17:04 Counseled pt/family regarding: lab results, diagnosis, need for follow-up, rad results - Departure Departure Disposition: Home Clinical Impression: Diarrhea, UTI (urinary tract infection) Condition: Stable Critical Care Time: No Referrals: APRIL CABA NP [Primary Care Provider] - Follow up/PCP as directed Instructions: Diarrhea and Traveler's Diarrhea, Adult (DC) Additional Instructions: Please take the Keflex for UTI. Do not take the Bactrim as you are allergic to it. Prescriptions: Smz/Tmp Ds Tablet [Bactrim Ds Tablet] 1 udtab PO BID 10 Days #20 tablet Cephalexin Mh 500 mg [Keflex 500 mg] 500 mg PO BID 10 Days #20 cap
--- NOTE | 2023-12-13 22:58 | XRAY ---
Indication: Abdominal pain and diarrhea. Multiple contiguous axial images obtained through the abdomen and pelvis without contrast. Comparison: October 03, 2017 Lung bases again demonstrates bibasilar subsegmental atelectasis/scarring. No infiltrate or effusion. Heart not enlarged. Noncontrasted stomach and bowel loops appear nonobstructed. Appendix not visualized. New mild diffuse colonic diarrhea. Stable right renal cyst, splenic calcified granulomas, cholecystectomy, and hysterectomy. No free fluid/air. Remaining liver, pancreas, spleen, adrenal glands, kidneys, ureters, and bladder are unremarkable for noncontrast exam. Again mild aortoiliac calcifications without AAA. Osseous structures intact again with osteopenia, progressive worsening moderate/advanced multilevel degenerative spondylosis with minimal grade 1 L5 listhesis, moderate levorotoscoliosis centered at L3, and old right lower rib fractures. Again incidental moderate sized fatty ventral epigastric hernia. Impression: 1. New colonic diarrhea. 2. Again chronic findings including atelectasis/scarring, right renal cyst, fatty ventral hernia, arteriosclerotic disease, chronic bony findings, and old granulomatous disease. 3. Remaining CT abdomen/pelvis without contrast exam is negative.
== END 2023-12-13 17:31 | disposition home or self-care (01) ==
LOC: ED 14:18
DX: R19.7 Diarrhea, unspecified (principal); N39.0 Urinary tract infection, site not specified; I69.320 Aphasia following cerebral infarction; Z79.899 Other long term (current) drug therapy
CPT/HCPCS: 36000; 36415; 71045; 74176; 80053; 81001; 83690; 85025; 87077; 87086; 87186; 93005; 96360; 96365; 96374; 99284; J0696; J2405

== ENCOUNTER 2023-12-18 12:05 | Emergency (ER) | payer MEDICARE ==
--- NOTE | 2023-12-18 12:12 | ERPHSYRPT ---
- History of Present Illness Time Seen by Provider: 12/18/23 12:11 Source: patient Exam Limitations: no limitations Physician History: This is a 78-year-old white female patient of nurse practitioner Christopher who lives in an assisted living facility and was brought to the emergency department by the ambulance despite us informing the senior care that we do not have a functional CAT scan to perform any radiographic studies that this patient requires. Despite that the senior care told our nursing staff "you can take that up with the patient's daughter when the patient arrives". The patient has a history of gastroesophageal reflux disease, hyperlipidemia, Parkinson's disease, history of stroke in the past, fibromyalgia, restless leg syndrome and bilateral knee implants. Patient did hit her head and she presents with a cervical collar in place. Patient also complains of bilateral hip pain. Occurred: just prior to arrival Reason for Fall: unknown Injuries/Pain Location: head, neck, pelvis (Bilateral hips) Loss of Consciousness: memory impairment (Patient states that she does not recall the reason why she fell. She does recall that she did fall and hit her head) Severity of Pain-Max: mild (To moderate) Severity of Pain-Current: mild (To moderate) Modifying Factors: Improves With: movement Associated Symptoms (Fall): extremity injury (Bilateral hip pain) Allergies/Adverse Reactions: gabapentin Allergy (Verified 10/21/17 18:35) Sulfa (Sulfonamide Antibiotics) Allergy (Verified 10/21/17 18:35) hydrochlorothiazide Adverse Reaction (Verified 10/21/17 18:35) Home Medications: Aspirin EC 81 mg [Ecotrin 81 mg] 81 mg PO DAILY 10/03/17 [History] Calcium Carbonate/Vitamin D3 [Caltrate 600 Plus D3 Tablet] 600 mg PO DAILY 10/03/17 [History] Carbidopa/Levodopa [Sinemet Cr 50-200 Tablet] 1 tablet PO BID 10/03/17 [History] Carbidopa/Levodopa [Sinemet Cr 50-200 Tablet] 2 tablet PO QHS 10/03/17 [History] Docusate Sodium [Colace] 100 mg PO BID 10/03/17 [History] Lovastatin 10 mg PO DAILY 10/03/17 [History] Magnesium Oxide 400 mg PO DAILY 10/03/17 [History] Omeprazole Magnesium [Prilosec Otc] 20 mg PO DAILY 10/03/17 [History] Potassium Chloride 8 meq PO DAILY 10/03/17 [History] Ropinirole HCl [Requip] 1 mg PO QHS 10/03/17 [History] buPROPion HCL [Wellbutrin Sr] 200 mg PO DAILY 10/03/17 [History] methocarbamoL [Robaxin-750] 750 mg PO Q6H PRN PRN 10/03/17 [History] Hx Tetanus, Diphtheria Vaccination/Date Given: No Hx Influenza Vaccination/Date Given: Yes Hx Pneumococcal Vaccination/Date Given: Yes Travel Risk - Emerging Infectious Disease Are you exhibiting symptoms associated with any current EIDs: Yes Symptoms: Abdominal Pain, Diarrhea - Review of Systems Constitutional: No Symptoms Eyes: No Symptoms Ears, Nose, & Throat: No Symptoms Respiratory: No Symptoms Cardiac: No Symptoms Abdominal/Gastrointestinal: No Symptoms Genitourinary Symptoms: No Symptoms Musculoskeletal: Neck Pain, Fall, Injury, Joint Pain (Bilateral hips), Other (Headache) Skin: No Symptoms Neurological: Headache Psychological: No Symptoms Endocrine: No Symptoms Hematologic/Lymphatic: No Symptoms Immunological/Allergic: No Symptoms All Other Systems: Reviewed and Negative - Past Medical History Pertinent Past Medical History: Yes Neurological History: Stroke ENT History: No Pertinent History Cardiac History: No Pertinent History Respiratory History: No Pertinent History Endocrine Medical History: No Pertinent History Musculoskeletal History: Fibromyalgia GI Medical History: No Pertinent History History: No Pertinent History Psycho-Social History: No Pertinent History Female Reproductive Disorders: No Pertinent History Other Medical History: restless leg - Past Surgical History Past Surgical History: Yes Neuro Surgical History: No Pertinent History Cardiac: No Pertinent History Respiratory: No Pertinent History Gastrointestinal: Appendectomy, Cholecystectomy, Colon Resection Musculoskeletal: Orthopedic Surgery Female Surgical History: Hysterectomy Other Surgical History: bilateral knee replacements - Social History Smoking Status: Never smoker Exposure to second hand smoke: No Drug Use: none Patient Lives Alone: No - Nursing Vital Signs Nursing Vital Signs: Initial Vital Signs Temperature 97.2 F 12/18/23 12:07 Pulse Rate 99 H 12/18/23 12:07 Respiratory Rate 22 12/18/23 12:07 Blood Pressure 152/91 12/18/23 12:07 O2 Sat by Pulse Oximetry 92 L 12/18/23 12:07 Pain Scale Pain Intensity 4 - [place] Coma Score Best Eye Response (Annette): (3) open to voice Best Verbal Response (Annette): (5) oriented Best Motor Response ([place]ard): (6) obeys commands Annette Total: 14 - Physical Exam General Appearance: no apparent distress, alert, anxiety, obese Head Injury: no evidence of injury Eye Exam: PERRL/EOMI, eyes nml inspection ENT Exam: airway nml, nml ext.inspection Neck Exam: trachea midline, normal alignment, c-collar in place Respiratory/Chest Exam: normal breath sounds, No chest tenderness, No respiratory distress, No ecchymosis, No crepitus Cardiovascular Exam: normal heart sounds, regular rate/rhythm Gastrointestinal Exam: soft, normal bowel sounds, No tenderness Rectal Exam: not done Back Exam: normal inspection, normal range of motion, No CVA tenderness, No vertebral tenderness Extremity Exam: normal inspection, normal range of motion, pelvis stable, bony point tenderness (Bilateral hips), hip tenderness (Bilateral hips), other (No) Neurologic Exam: alert, oriented x 3, cooperative ( obvious external rotation of the lower extremities), silver recovery operator II-XII nml as tested Skin Exam: normal color, warm, dry SpO2 Interpretation: normal O2 Delivery: Room Air - Course Nursing assessment & vital signs reviewed: Yes - Progress Progress: unchanged Progress Note: 12/18/23 12:27 My medical decision making and the complexity of the patient's medical condition is based on review of the patient's past medical history, review of the patient's medication list, review of patient drug allergy list, history present illness and physical findings on examination. In addition, at this time, our CAT scan machine is not functional. This was told to the senior carehome visit field care manager as well as to the paramedics. The paramedics were well aware this was the issue. However, the senior carehome visit field care manager sent the patient to our facility where we cannot perform the necessary tests despite her well aware that we could not do so. The patient's daughter arrived. She had no idea that we could not perform the appropriate test in this patient at this time. She was told by the nursing staff/residence supervisor from the assisted living/senior care to just come to the emergency department. The patient's daughter was told that we can contact [facility] in [facility] and transfer her there to get the workup performed. However, the patient's daughter prefers to try to transfer this patient to [facility]. We contacted Marixa at [facility] in [facility]. She accepts the patient in transfer on behalf of the emergency department. 12/18/23 12:30 Patient underwent a medical screening examination. She is stable for transfer/transport to [facility] emergency department. Counseled pt/family regarding: diagnosis Medical Desision Making - Independent Historian Additional History obtained from: Family, Correction nurse - Diagnostic Testing Diagnostic test were ordered, analyzed, and reviewed by me: No - Risk of complications The pt has a high risk of morbidity or mortality based on: Decision regarding hospitilization or escalation of hosp level of care - Departure Departure Disposition: Transfer Clinical Impression: Fall, Encounter for medical screening examination Condition: Stable Critical Care Time: No Referrals: APRIL CABA NP [Primary Care Provider] - Follow up/PCP as directed
[2023-12-18 12:42] VITALS: BP 152/87; PULSE 95; RESP 20; TEMP 97.5; O2SAT 93
== END 2023-12-18 13:04 | disposition short-term general hospital (02) ==
LOC: ED 12:05
DX: Z04.3 Encounter for examination and observation following other accident (principal); R51.9 Headache, unspecified; M25.551 Pain in right hip; M25.552 Pain in left hip; E78.5 Hyperlipidemia, unspecified; Z79.899 Other long term (current) drug therapy
CPT/HCPCS: 36000; 99284

== ENCOUNTER 2024-02-02 17:51 | Emergency (ER) | payer MEDICARE ==
--- NOTE | 2024-02-02 18:13 | ERPHSYRPT ---
- History of Present Illness Time Seen by Provider: 02/02/24 18:12 Historian: patient, family Exam Limitations: no limitations Physician History: right flank and abd pain. remote hx of CVA no new symptoms. Pt states that she had UTI some time ago tx keflex and remote colon resection but has been having right flank pain and UTI symptoms again. No N or V. daughter is here as independent Hx source. Discussed testing and Tx with daughter and pt including rocephin, macrodantin, UA, Lipase, CBC, CMP, CT imaging, IVF and they wish to proceed. THese are ordered. Results of these were discussed with pt and daughter. Timing/Duration: today Activities at Onset: none Abdominal Pain Onset Location: suprapubic, flank Pain Radiation: flank Severity of Pain-Max: moderate Severity of Pain-Current: moderate Modifying Factors: Improves With: nothing Associated Symptoms: back Previous symptoms: no prior history Allergies/Adverse Reactions: gabapentin Allergy (Verified 02/02/24 18:14) Sulfa (Sulfonamide Antibiotics) Allergy (Verified 02/02/24 18:14) hydrochlorothiazide Adverse Reaction (Verified 02/02/24 18:14) Home Medications: Aspirin EC 81 mg [Ecotrin 81 mg] 81 mg PO DAILY 10/03/17 [History] Calcium Carbonate/Vitamin D3 [Caltrate 600 Plus D3 Tablet] 600 mg PO DAILY 10/03/17 [History] Carbidopa/Levodopa [Sinemet Cr 50-200 Tablet] 1 tablet PO BID 10/03/17 [History] Carbidopa/Levodopa [Sinemet Cr 50-200 Tablet] 2 tablet PO QHS 10/03/17 [History] Docusate Sodium [Colace] 100 mg PO BID 10/03/17 [History] Lovastatin 10 mg PO DAILY 10/03/17 [History] Magnesium Oxide 400 mg PO DAILY 10/03/17 [History] Omeprazole Magnesium [Prilosec Otc] 20 mg PO DAILY 10/03/17 [History] Potassium Chloride 8 meq PO DAILY 10/03/17 [History] Ropinirole HCl [Requip] 1 mg PO QHS 10/03/17 [History] buPROPion HCL [Wellbutrin Sr] 200 mg PO DAILY 10/03/17 [History] methocarbamoL [Robaxin-750] 750 mg PO Q6H PRN PRN 10/03/17 [History] Hx Tetanus, Diphtheria Vaccination/Date Given: No Hx Influenza Vaccination/Date Given: Yes Hx Pneumococcal Vaccination/Date Given: Yes Travel Risk - Emerging Infectious Disease Are you exhibiting symptoms associated with any current EIDs: Yes Symptoms: Abdominal Pain, Diarrhea - Review of Systems Constitutional: No Fever, No Chills Eyes: No Symptoms Ears, Nose, & Throat: No Symptoms Respiratory: No Cough, No Dyspnea Cardiac: No Chest Pain, No Edema, No Syncope Abdominal/Gastrointestinal: Abdominal Pain, No Nausea, No Vomiting, No Diarrhea Genitourinary Symptoms: Dysuria, Flank Pain Musculoskeletal: No Back Pain, No Neck Pain Skin: No Rash Neurological: No Dizziness, No Focal Weakness, No Sensory Changes Psychological: No Symptoms Endocrine: No Symptoms Hematologic/Lymphatic: No Symptoms Immunological/Allergic: No Symptoms All Other Systems: Reviewed and Negative - Past Medical History Pertinent Past Medical History: Yes Neurological History: Stroke ENT History: No Pertinent History Cardiac History: No Pertinent History Respiratory History: No Pertinent History Endocrine Medical History: No Pertinent History Musculoskeletal History: Fibromyalgia GI Medical History: No Pertinent History History: No Pertinent History Psycho-Social History: No Pertinent History Female Reproductive Disorders: No Pertinent History Other Medical History: restless leg - Past Surgical History Past Surgical History: Yes Neuro Surgical History: No Pertinent History Cardiac: No Pertinent History Respiratory: No Pertinent History Gastrointestinal: Appendectomy, Cholecystectomy, Colon Resection Musculoskeletal: Orthopedic Surgery Female Surgical History: Hysterectomy Other Surgical History: bilateral knee replacements - Social History Smoking Status: Never smoker Exposure to second hand smoke: No Drug Use: none Patient Lives Alone: No - Nursing Vital Signs Nursing Vital Signs: Initial Vital Signs Temperature 97.6 F 02/02/24 18:20 Pulse Rate 74 02/02/24 18:20 Respiratory Rate 18 02/02/24 18:20 Blood Pressure 130/70 02/02/24 18:20 O2 Sat by Pulse Oximetry 94 L 02/02/24 18:20 Pain Scale Pain Intensity 4 - Physical Exam General Appearance: no apparent distress, alert Eye Exam: PERRL/EOMI, eyes nml inspection Ears, Nose, Throat Exam: normal ENT inspection, pharynx normal, moist mucous membranes Neck Exam: normal inspection, non-tender, supple, full range of motion Respiratory Exam: normal breath sounds, lungs clear, No respiratory distress Cardiovascular Exam: regular rate/rhythm, normal heart sounds Gastrointestinal/Abdomen Exam: soft, No tenderness, No mass Pelvic Exam: deferred Rectal Exam: deferred Back Exam: normal inspection, normal range of motion, No CVA tenderness, No vertebral tenderness Extremity Exam: normal inspection, normal range of motion, pelvis stable Neurologic Exam: alert, oriented x 3, cooperative, bed worker II-XII nml as tested, normal mood/affect, nml cerebellar function, sensation nml, No motor deficits Skin Exam: normal color, warm, dry SpO2 Interpretation: normal SpO2: 95 O2 Delivery: Room Air - Course Nursing assessment & vital signs reviewed: Yes - CT Exams Abdomen/Pelvis CT Interpretation: Tele-radiologist Report, Other (renal cyst, lumbar DDD) Ordered Tests: Active Orders 24 hr Category Date Time Status IV Insertion STAT Care 02/02/24 18:18 Completed ABDOMEN AND PELVIS W/0 CONTRAS [CT] Stat Exams 02/02/24 18:18 Completed AMYLASE Stat Lab 02/02/24 18:26 Completed CBC W DIFF Stat Lab 02/02/24 18:26 Completed CMP Stat Lab 02/02/24 18:26 Completed LIPASE Stat Lab 02/02/24 18:26 Completed Lactic Acid Stat Lab 02/02/24 18:18 Completed UA W/RFX UR CULTURE Stat Lab 02/02/24 18:26 Completed Medication Summary Discontinued Medications Generic Name Dose Route Start Last Admin Trade Name Freq PRN Reason Stop Dose Admin Hydromorphone HCl 0.5 mg 02/02/24 20:08 02/02/24 20:22 Hydromorphone 1 Mg/1ml Inj IV 02/02/24 20:09 0.5 mg STAT ONE Administration Hydromorphone HCl Confirm 02/02/24 20:19 Hydromorphone 1 Mg/1ml Inj Administered 02/02/24 20:20 Dose 1 mg .ROUTE .STK-MED ONE Sodium Chloride 1,000 mls @ 100 mls/hr 02/02/24 18:30 02/02/24 18:30 Sodium Chloride 0.9% 1000 Ml IV 03/03/24 18:29 100 mls/hr .Q10H JAIDA Administration Ceftriaxone Sodium 1 gm in 100 mls @ 200 mls/hr 02/02/24 21:54 02/02/24 22:30 Rocephin 1 Gm / 100 Ml Nacl IV 02/02/24 22:23 Infused STAT ONE Infusion Ceftriaxone Sodium Confirm 02/02/24 21:54 Rocephin 1 Gm / 100 Ml Nacl Administered 02/02/24 21:55 Dose 1 gm in 100 mls @ ud IV .STK-MED ONE Sodium Chloride Confirm 02/02/24 18:28 Sodium Chloride 0.9% 1000 Ml Administered 02/02/24 18:29 Dose 1,000 mls @ ud .ROUTE .STK-MED ONE Lab/Rad Data: Laboratory Result Diagrams 02/02/24 18:26 02/02/24 18:26 Laboratory Results 02/02/24 02/02/24 02/02/24 Range/Units 18:26 18: 18: WBC 7.4 (4.0-10.5) x10^3/uL RBC 4.84 (4.1-5.4) x10^6/uL Hgb 14.5 (12.0-16.0) g/dL Hct 44.0 (35-47) % MCV 90.9 (78-100) fL MCH 30.0 (26-32) pg MCHC 33.0 (32-36) g/dL RDW 12.9 (11.5-14.0) % Plt Count 201 (150-450) x10^3/uL MPV 10.4 (7.5-11.0) fL Gran % 57.2 (36.0-66.0) % Immature Gran % (Auto) 0.4 (0.00-0.4) % Nucleat RBC Rel Count 0.0 (0.00-0.1) % Eos # (Auto) 0.29 (0-0.5) x10^3/uL Immature Gran # (Auto) 0.03 (0.00-0.03) x10^3u/L Absolute Lymphs (auto) 2.11 (1.0-4.6) x10^3/uL Absolute Monos (auto) 0.69 (0.0-1.3) x10^3/uL Absolute Nucleated RBC 0.00 (0.00-0.01) x10^3u/L Lymphocytes % 28.5 (24.0-44.0) % Monocytes % 9.3 (0.0-12.0) % Eosinophils % 3.9 (0.00-5.0) % Basophils % 0.7 (0.0-0.4) % Absolute Granulocytes 4.24 (1.4-6.9) x10^3/uL Basophils # 0.05 (0-0.4) x10^3/uL Sodium 137 (135-145) mmol/L Potassium 4.6 (3.5-5.1) mmol/L Chloride 103 (98-107) mmol/L Carbon Dioxide 25 (22-30) mmol/L Anion Gap 12.8 (5-15) MEQ/L BUN 10 (7-17) mg/dL Creatinine 0.53 (0.52-1.04) mg/dL Estimated GFR 95.2 ML/MIN Glucose 100 (74-106) mg/dL Lactic Acid (0.4-2.0) Calcium 9.8 (8.4-10.2) mg/dL Total Bilirubin 1.10 (0.2-1.3) mg/dL AST 25 (14-36) U/L ALT 17 (0-35) U/L Alkaline Phosphatase 57 (38-126) U/L Serum Total Protein 6.8 (6.3-8.2) g/dL Albumin 4.1 (3.5-5.0) g/dL Amylase 49 (30-110) U/L Lipase 58 (23-300) U/L Urine Color Yellow (Yellow) Urine Appearance Clear (Clear) Urine pH 7.5 (4.6-8.0) Ur Specific [place] 1.010 (1.005-1.030) Urine Protein Negative (Negative) Urine Glucose (UA) Negative (Negative) mg/dL Urine Ketones Negative (Negative) Urine Blood Negative (Negative) Urine Nitrite Negative (Negative) Urine Bilirubin Negative (Negative) Urine Urobilinogen 1.0 A (0.2) mg/dL Ur Leukocyte Esterase Moderate A (Negative) U Hyaline Cast (Auto) NONE SEEN (0-2) /LPF Urine Microscopic RBC 0-2 (0-5) /HPF Urine Microscopic WBC 6-10 A (0-5) /HPF Ur Epithelial Cells None Seen (None Seen) /HPF Urine Bacteria None Seen (None Seen) /HPF Urine Culture Reflexed NO (NO) 02/02/24 Range/Units 18:18 WBC (4.0-10.5) x10^3/uL RBC (4.1-5.4) x10^6/uL Hgb (12.0-16.0) g/dL Hct (35-47) % MCV (78-100) fL MCH (26-32) pg MCHC (32-36) g/dL RDW (11.5-14.0) % Plt Count (150-450) x10^3/uL MPV (7.5-11.0) fL Gran % (36.0-66.0) % Immature Gran % (Auto) (0.00-0.4) % Nucleat RBC Rel Count (0.00-0.1) % Eos # (Auto) (0-0.5) x10^3/uL Immature Gran # (Auto) (0.00-0.03) x10^3u/L Absolute Lymphs (auto) (1.0-4.6) x10^3/uL Absolute Monos (auto) (0.0-1.3) x10^3/uL Absolute Nucleated RBC (0.00-0.01) x10^3u/L Lymphocytes % (24.0-44.0) % Monocytes % (0.0-12.0) % Eosinophils % (0.00-5.0) % Basophils % (0.0-0.4) % Absolute Granulocytes (1.4-6.9) x10^3/uL Basophils # (0-0.4) x10^3/uL Sodium (135-145) mmol/L Potassium (3.5-5.1) mmol/L Chloride (98-107) mmol/L Carbon Dioxide (22-30) mmol/L Anion Gap (5-15) MEQ/L BUN (7-17) mg/dL Creatinine (0.52-1.04) mg/dL Estimated GFR ML/MIN Glucose (74-106) mg/dL Lactic Acid 1.3 (0.4-2.0) Calcium (8.4-10.2) mg/dL Total Bilirubin (0.2-1.3) mg/dL AST (14-36) U/L ALT (0-35) U/L Alkaline Phosphatase (38-126) U/L Serum Total Protein (6.3-8.2) g/dL Albumin (3.5-5.0) g/dL Amylase (30-110) U/L Lipase (23-300) U/L Urine Color (Yellow) Urine Appearance (Clear) Urine pH (4.6-8.0) Ur Specific [place] (1.005-1.030) Urine Protein (Negative) Urine Glucose (UA) (Negative) mg/dL Urine Ketones (Negative) Urine Blood (Negative) Urine Nitrite (Negative) Urine Bilirubin (Negative) Urine Urobilinogen (0.2) mg/dL Ur Leukocyte Esterase (Negative) U Hyaline Cast (Auto) (0-2) /LPF Urine Microscopic RBC (0-5) /HPF Urine Microscopic WBC (0-5) /HPF Ur Epithelial Cells (None Seen) /HPF Urine Bacteria (None Seen) /HPF Urine Culture Reflexed (NO) - Progress Progress: improved, re-examined Progress Note: 02/02/24 23:28 I advised the pt and family that we have not yet determined a cause for her pain and there may be additional undetected pathology evolving of a serious nature and requires further w/u and they prefer this outpt rather than in ER or hospital tonight and have the capacity to make that choice which is reasonable since CT findings not concerning - they wish to proceed with Tx of UTI Counseled pt/family regarding: lab results, diagnosis, need for follow-up, rad results Medical Desision Making - Independent Historian Additional History obtained from: Family - Discussion of managment Care discussed with:: PCP Reviewed:: Test results, Need for additional workup Agreed on:: Treatment plan, need for follow-up - Diagnostic Testing Diagnostic test were ordered, analyzed, and reviewed by me: Yes Radiological Interpretation: Teleradiologist Report - Risk of complications The pt has a mod risk of morbidity or mortality based on: Need for prescription drug management The pt has a high risk of morbidity or mortality based on: Decision regarding hospitilization or escalation of hosp level of care - Departure Departure Disposition: Home Clinical Impression: UTI (urinary tract infection), Abdominal pain of unknown etiology Condition: Good Critical Care Time: No Referrals: APRIL CABA NP [Primary Care Provider] - Follow up/PCP as directed Instructions: Urinary tract infections in adults, Severe Abdominal Pain, Adult (DC) Additional Instructions: follow up with your since we have not determined an exact cause and other conditions may be evolving undetected so followup with your Rebeca for further work up is needed, and return meantime if not improving. Prescriptions: Nitrofurantoin Macro 100 mg [Macrobid 100MG Capsule] 100 mg PO BID #20 cap
[2024-02-02 18:21] VITALS: TEMP 97.6
[2024-02-02] MEDS ORDERED: Sodium Chloride 0.9% 1000 ML 1,000 ML ONE (18:28)
[2024-02-02 18:29] LABS: Absolute Neutrophil Ct (ANC) 4.24 x10^3/uL (1.4-6.9); BASOPHIL % 0.7 % (0.0-0.4); Basophil (Absolute #) 0.05 x10^3/uL (0-0.4); Eosinophil % 3.9 % (0.00-5.0); Eosinophil (Absolute #) 0.29 x10^3/uL (0-0.5); Hemoglobin 14.5 g/dL (12.0-16.0); IMMATURE GRAN # 0.03 x10^3u/L (0.00-0.03); IMMATURE GRAN % 0.4 % (0.00-0.4); Lymphocyte (Absolute #) 2.11 x10^3/uL (1.0-4.6); Lymphocytes % 28.5 % (24.0-44.0); Mean Cell Volume 90.9 fL (78-100); Mean Platelet Volume 10.4 fL (7.5-11.0); Monocyte (Absolute #) 0.69 x10^3/uL (0.0-1.3); Monocytes % 9.3 % (0.0-12.0); Neutrophil % 57.2 % (36.0-66.0); Platelet Count 201 x10^3/uL (150-450); Red Blood Count 4.84 x10^6/uL (4.1-5.4); Red Cell Distribution Width 12.9 % (11.5-14.0); White Blood Count 7.4 x10^3/uL (4.0-10.5)
[2024-02-02] MEDS: Sodium Chloride 0.9% 1000 ML 1,000 ML IV SCH (18:30)
[2024-02-02 18:35] LABS: Appearance Clear (Clear); Bacteria None Seen /HPF (None Seen); Bilirubin Negative (Negative); Blood Negative (Negative); Epithelial Cells None Seen /HPF (None Seen); Glucose, Urine Negative (Negative); Hyaline Casts NONE SEEN /LPF (0-2); Ketones Negative (Negative); Leukocyte Esterase Moderate (Negative); Nitrite Negative (Negative); Ph 7.5 (4.6-8.0); Protein,Urine Dip Negative (Negative); RBC 0-2 /HPF (0-5)
[2024-02-02 18:42] LABS: ALBUMIN 4.1 g/dL (3.5-5.0); ANION GAP 12.8 MEQ/L (5-15); BILIRUBIN,TOTAL 1.1 mg/dL (0.2-1.3); Calcium 9.8 mg/dL (8.4-10.2); Creatinine 1 0.53 mg/dL (0.52-1.04); EST GLOMERULAR FILTRATION RATE 95.2 ML/MIN; Potassium 4.6 mmol/L (3.5-5.1); Total Protein 6.8 g/dL (6.3-8.2)
[2024-02-02 18:45] LABS: ADD URINE CULTURE? NO (NO)
[2024-02-02] MEDS ORDERED: Hydromorphone 1 mg/ml Injection ONE (20:19)
[2024-02-02] MEDS: Hydromorphone 1 mg/ml Injection IV ONE (20:22)
[2024-02-02 21:39] VITALS: PULSE 74; RESP 1
--- NOTE | 2024-02-02 21:47 | XRAY ---
CLINICAL HISTORY: right flank/abdominal pain and tend COMPARISON: Prior CT abdomen dated 12/13/2023 TECHNIQUE: CT scan of the abdomen was performed without IV contrast, Coronal and sagittal reconstructive images were also obtained. One of the following dose reduction techniques were utilized for this exam: Automated exposure control, adjustment of the mA and/or kV according to patient size, use of iterative reconstruction. FINDINGS: Lung bases are unremarkable. Fat-containing ventral hernia is seen. The liver is normal in size without focal parenchymal abnormality. The intrahepatic biliary radicals and the bile ducts are normal. Gallbladder is not seen, s/p cholecystectomy. Multiple coarse calcifications are seen within the spleen, likely secondary to prior granulomatous infection. The spleen, pancreas, adrenal glands are unremarkable. A well-defined, simple cyst is seen within the upper pole of right kidney measuring approximately 4.8 cm. The kidneys are unremarkable. They are normal in size and shape. No calculi or hydronephrosis is seen. The ascending colon, the transverse colon, the descending colon, visualized small bowel loops are unremarkable. There is no evidence of significant enlargement of the mesenteric or retroperitoneal lymph nodes. Appendix is not identified Severe lumbar spondylosis is seen with levoscoliosis Pelvis: The urinary bladder is unremarkable. The rectosigmoid colon is unremarkable. The pelvic vasculature is unremarkable. No evidence of pelvic lymphadenopathy. IMPRESSION: No significant abnormality is noted. Fat-containing ventral hernia. Right renal simple cyst. No significant interval changes since prior CT. Electronically Signed by: Zak Thapa MD. (02/02/2024 21:42:02 EDT)
[2024-02-02] MEDS ORDERED: ROCEPHIN 1 GM / 100 ML NaCl 1 GM/100 ML IVPB IV ONE (21:54)
[2024-02-02] MEDS: ROCEPHIN 1 GM / 100 ML NaCl 1 GM/100 ML IVPB IV ONE (21:57)
[2024-02-02 22:38] VITALS: BP 109/75
[2024-02-02 23:09] VITALS: O2SAT 95
== END 2024-02-02 22:57 | disposition home or self-care (01) ==
LOC: ED 17:51
DX: N39.0 Urinary tract infection, site not specified (principal); R10.9 Unspecified abdominal pain; Z79.899 Other long term (current) drug therapy
CPT/HCPCS: 36000; 36415; 74176; 80053; 81001; 82150; 83605; 83690; 85025; 96365; 96374; 99284; J0696; J1170